=== PATIENT | male | born 1950 | race Caucasian/White ===

== ENCOUNTER 2017-06-04 16:27 | Inpatient (IN) | payer OTHER ==
[2017-06-04] MEDS ORDERED: SODIUM CHLORIDE 0.9% 1,000 ML IV ONE ×2 (18:29→20:57)
--- NOTE | 2017-06-04 18:31 | ED Physician Documentation ---
History of Present Illness - Stated complaint Stated Complaint: BACK PX - Chief complaint Chief Complaint: General - History obtained from History obtained from: Patient - History of Present Illness Timing: Other (3 weeks of productive cough, high right back pain, fatigue and dizziness. He has had chills but no measured fevers.) Review of Systems Constitutional: reports: Chills, Fatigue. denies: Fever Nose: denies: Rhinorrhea / runny nose, Congestion Cardiac: denies: Chest pain / pressure, Palpitations Respiratory: reports: Dyspnea, Cough GI: reports: Abdominal Pain. denies: Nausea, Vomiting, Diarrhea : denies: Dysuria, Frequency PD PAST MEDICAL HISTORY - Past Medical History Cardiovascular: Hypertension, High cholesterol Respiratory: Shortness of breath, Sleep apnea, CPAP use Neuro: None Endocrine/Autoimmune: Type 2 diabetes GI: Ulcers, Hemorrhoids, Cholelithiasis : Frequency, Kidney stones HEENT: None Psych: None Musculoskeletal: Osteoarthritis Derm: None - Past Surgical History General: Cholecystectomy, Appendectomy, Colonoscopy, EGD, Other Ortho: Carpal Tunnel surgery HEENT: Tonsil/Adenoidectomy - Present Medications Home Medications: Ambulatory Orders Medication Instructions Recorded Confirmed Aspirin [Aspirin EC] 81 mg PO DAILY 04/02/16 04/02/16 Gemfibrozil [Lopid] 600 mg PO BIDAC 04/02/16 04/02/16 Lisinopril 40 mg PO DAILY 04/02/16 04/02/16 Metformin HCl [Glucophage] 1,275 mg PO BID 04/02/16 04/02/16 Multivitamin [Multivitamins] 1 each PO DAILY 04/02/16 04/02/16 [place]-3/Dha/Epa/Fish Oil [Fish Oil 3,000 mg PO BID 04/02/16 04/03/16 1,000 mg Softgel] Pravastatin Sodium [Pravachol] 40 mg PO DAILY 04/02/16 04/02/16 Spironolactone [Aldactone] 50 mg PO DAILY 04/02/16 04/02/16 Terazosin HCl 20 mg PO DAILY 04/02/16 04/02/16 amLODIPine [Norvasc] 10 mg PO DAILY 04/02/16 04/02/16 Insulin Glargine [Lantus Solostar] 75 unit SUBQ BID 04/03/16 04/03/16 Insulin Regular Human [NovoLIN R] 5 unit SUBQ .QLUNCH 04/03/16 04/03/16 Insulin Regular Human [NovoLIN R] 10 - 20 unit SUBQ 04/03/16 04/03/16 .QBREAKFAST&DINNER Multivitamin [Theragran] 1 tab PO DAILY tablet 04/03/16 Furosemide 20 mg PO PRN PRN #30 tablet 04/04/16 Warfarin [Coumadin] 5 mg PO QDWARFARIN #30 tablet 04/04/16 - Allergies Allergies/Adverse Reactions: Allergies Allergy/AdvReac Type Severity Reaction Status Date / Time No Known Drug Allergies Allergy Verified 06/04/17 16:36 - Social History Does the pt smoke?: No Smoking Status: Former smoker - Immunizations Immunizations are current?: Yes PD ED PE NORMAL - Vitals Vital signs reviewed: Yes - General General: Alert and oriented X 3, No acute distress - HEENT HEENT: PERRL, EOMI - Neck Neck: Supple, no meningeal sign, No bony TTP - Cardiac Cardiac: RRR, No murmur - Respiratory Respiratory: No respiratory distress, Clear bilaterally - Abdomen Abdomen: Soft, Other (tender on the right) - Back Back: No CVA TTP, No spinal TTP - Derm Derm: Normal color, Warm and dry - Extremities Extremities: No edema, No calf tenderness / cord - Neuro Neuro: Alert and oriented X 3, Normal speech - Psych Psych: Normal mood, Normal affect Results - Vitals Vitals: Vital Signs - 24 hr 06/04/17 06/04/17 16:33 20:53 Temperature 36.4 C L Heart Rate 98 89 Respiratory 18 18 Rate Blood Pressure 132/89 H 113/79 O2 Saturation 98 97 Oxygen O2 Source Room air - EKG (time done) 1844 Rate: Rate (enter#) (92) Rhythm: Atrial fibrillation [place]: Normal QRS: Normal Ischemia: Non specific changes Computer interpretation: Agree with computer - Labs Labs: Laboratory Tests 06/04/17 06/04/17 06/04/17 16:40 18:42 18:42 WBC 10.8 RBC 4.18 L Hgb 12.1 L Hct 36.2 L MCV 86.8 MCH 29.0 MCHC 33.4 RDW 14.0 Plt Count 228 MPV 8.6 Neut # 8.1 H Lymph # 1.6 [place] # 1.0 Eos # 0.0 Baso # 0.1 Absolute Nucleated RBC 0.00 Nucleated RBC % 0.0 PT INR Sodium 131 L Potassium 4.4 Chloride 94 L Carbon Dioxide 20 L Anion Gap 17.0 H BUN 50 H Creatinine 2.3 H Estimated GFR (MDRD) 28 L Glucose 373 H Calcium 9.6 Total Bilirubin 0.5 AST 17 ALT 14 Alkaline Phosphatase 63 Troponin I Total Protein 8.6 H Albumin 3.7 Globulin 4.8 H Albumin/Globulin Ratio 0.8 L Lipase 18 L Urine Color Urine Clarity Urine pH Ur Specific [place] Urine Protein Urine Glucose (UA) Urine Ketones Urine Occult Blood Urine Nitrite Urine Bilirubin Urine Urobilinogen Ur Leukocyte Esterase Urine RBC Urine WBC Ur Squamous Epith Cells Urine Bacteria Urine Casts Ur Microscopic Review Urine Culture Comments Serum Ketones Influenza A (Rapid) Negative Influenza B (Rapid) Negative Influenza Types A,B Ag - 06/04/17 06/04/17 06/04/17 18:42 18:42 18:45 WBC RBC Hgb Hct MCV MCH MCHC RDW Plt Count MPV Neut # Lymph # [place] # Eos # Baso # Absolute Nucleated RBC Nucleated RBC % PT 108.8 H INR 10.5 H* Sodium Potassium Chloride Carbon Dioxide Anion Gap BUN Creatinine Estimated GFR (MDRD) Glucose Calcium Total Bilirubin AST ALT Alkaline Phosphatase Troponin I 0.06 Total Protein Albumin Globulin Albumin/Globulin Ratio Lipase Urine Color Urine Clarity Urine pH Ur Specific [place] Urine Protein Urine Glucose (UA) Urine Ketones Urine Occult Blood Urine Nitrite Urine Bilirubin Urine Urobilinogen Ur Leukocyte Esterase Urine RBC Urine WBC Ur Squamous Epith Cells Urine Bacteria Urine Casts Ur Microscopic Review Urine Culture Comments Serum Ketones NEGATIVE Influenza A (Rapid) Influenza B (Rapid) Influenza Types A,B Ag 06/04/17 20:57 WBC RBC Hgb Hct MCV MCH MCHC RDW Plt Count MPV Neut # Lymph # [place] # Eos # Baso # Absolute Nucleated RBC Nucleated RBC % PT INR Sodium Potassium Chloride Carbon Dioxide Anion Gap BUN Creatinine Estimated GFR (MDRD) Glucose Calcium Total Bilirubin AST ALT Alkaline Phosphatase Troponin I Total Protein Albumin Globulin Albumin/Globulin Ratio Lipase Urine Color YELLOW Urine Clarity HAZY Urine pH 6.0 Ur Specific [place] 1.025 Urine Protein 30 H Urine Glucose (UA) 250 H Urine Ketones NEGATIVE Urine Occult Blood TRACE-LYSE Urine Nitrite NEGATIVE Urine Bilirubin NEGATIVE Urine Urobilinogen 0.2 (NORMAL) Ur Leukocyte Esterase NEGATIVE Urine RBC None Seen Urine WBC 0-3 Ur Squamous Epith Cells RARE Squamous Urine Bacteria None Seen Urine Casts 3-5 Hyaline Casts Ur Microscopic Review INDICATED Urine Culture Comments NOT INDICATED Serum Ketones Influenza A (Rapid) Influenza B (Rapid) Influenza Types A,B Ag - Rads (name of study) CT A/P Radiology: EMP read contemporaneously (Perforated appendicitis) PD MEDICAL DECISION MAKING - ED course ED course: 67-year-old gentleman presents with subacute complaints of back pain and not feeling well, he has a tender abdomen and workup is notable for prerenal failure and perforated appendicitis. Spoke with Dr. Aguilar who will consult but he is not probably an acute surgical candidate and defers to medicine for admit and I spoke with Dr. Mcqueen for admission at 8:55 PM. Departure - Departure Disposition: 66 [facility] DC/Xfer Clinical Impression: Atrial fibrillation with slow ventricular response, Perforated appendicitis, Supratherapeutic INR Acute renal failure Qualifiers: Acute renal failure type: unspecified Qualified Code(s): N17.9 - Acute kidney failure, unspecified Condition: Stable Discharge Date/Time: 06/04/17 23:00
[2017-06-04 19:20] LABS: BASOPHILS # (AUTO) 0.1 10^3/uL (0.0-0.1); BASOPHILS % (AUTO) 0.6 %; EOSINOPHILS % (AUTO) 0.3 %; HGB - HEMOGLOBIN 12.1 g/dL (14.0-18.0); LYMPHOCYTES # (AUTO) 1.6 10^3/uL (1.5-3.5); LYMPHOCYTES % (AUTO) 14.8 %; MEAN CORPUSCULAR HGB CONC 33.4 g/dL (32.0-36.0); MEAN CORPUSCULAR VOLUME 86.8 fL (80.0-94.0); MEAN PLATELET VOLUME 8.6 fL (7.4-11.4); MONOCYTES % (AUTO) 9.3 %; NEUTROPHILS # (AUTO) 8.1 10^3/uL (1.5-6.6); PLT - PLATELET COUNT 228 10^3/uL (130-450); RED BLOOD COUNT 4.18 10^6/uL (4.70-6.10); WHITE BLOOD COUNT 10.8 x10^3/uL (4.8-10.8)
[2017-06-04 19:34] LABS: ALBUMIN 3.7 g/dL (3.2-5.5); ALBUMIN/GLOBULIN RATIO 0.8 (1.0-2.2); BILIRUBIN,TOTAL 0.5 mg/dL (0.2-1.0); CALCIUM 9.6 mg/dL (8.5-10.3); CREATININE 2.3 mg/dL (0.6-1.2); TOTAL PROTEIN 8.6 g/dL (6.7-8.2)
--- NOTE | 2017-06-04 19:41 | XRAY Report ---
EXAM: CHEST RADIOGRAPHY EXAM DATE: 06/04/2017 07:19 PM. CLINICAL HISTORY: Cough. Back pain. COMPARISON: 04/02/2016. TECHNIQUE: 2 views. FINDINGS: Lungs/Pleura: No focal opacities evident. No pleural effusion. No pneumothorax. Normal volumes. Mediastinum: Heart and mediastinal contours are unremarkable. Other: Mild chronic-appearing anterior wedging in the midthoracic spine. IMPRESSION: No acute abnormalities or interval change. [facility] Referring Provider Line: [phone] SITE ID: [id number]
--- NOTE | 2017-06-04 20:39 | CT Report ---
EXAM: CT ABDOMEN AND PELVIS EXAM DATE: 06/04/2017 08:12 PM. CLINICAL HISTORY: Back pain and abd TTP, renal failure. COMPARISONS: None. TECHNIQUE: Routine axial helical CT imaging was performed through the abdomen and pelvis without IV c ontrast. Reconstructions: Coronal and sagittal. In accordance with CT protocol optimization, one or more of the following dose reduction techniques w ere utilized for this exam: automated exposure control, adjustment of mA and/or KV based on patient s ize, or use of iterative reconstructive technique. FINDINGS: Lung Bases: Unremarkable. Abdominal Organs: The liver and spleen demonstrate no acute abnormality. There is fatty replacement o f pancreas. The adrenal glands and kidneys demonstrate no acute findings. There is left nephrolithias is. Gallbladder/bile ducts: The gallbladder is surgically absent. There is no significant bile duct dilat ation. Peritoneal Cavity: Stomach and small bowel demonstrate no acute abnormalities. No acute colonic abnor malities. The appendix is dilated and fluid-filled measuring up to 1.5 cm. Its cuadra are ill-defined and there are small locules of periappendiceal fluid. There is periappendiceal fat stranding. No intr aperitoneal free air. Pelvic Organs: No bladder stones or wall thickening. Noncontrast images of the visualized pelvic orga ns are unremarkable. Vasculature: No acute vascular abnormalities. Other: None. IMPRESSION: 1. CT findings consistent with perforated appendicitis with periappendiceal phlegmon. The appendix is fluid-filled measuring up to 1.5 cm in diameter. It is poorly defined. There is surrounding fat stra nding. There are small locules of adjacent fluid. No discrete fluid collection is seen that is clearl y amenable to percutaneous drainage. 2. There is left nephrolithiasis. 3. There is distal colon diverticulosis. Referring Provider Line: [phone] SITE ID: [id number]
[2017-06-04] MEDS ORDERED: PIPERACILLIN/TAZOBACTAM 3.375 GM in SODIUM CHLORIDE 0.9% MINIBAG 100 ML IV STA (20:56)
[2017-06-04 21:04] LABS: BILIRUBIN,URINE NEGATIVE (NEGATIVE); GLUCOSE, URINE (UA) 250 mg/dL (NEGATIVE); KETONES,URINE (UA) NEGATIVE (NEGATIVE); LEUKOCYTE ESTERASE, URINE NEGATIVE (NEGATIVE); NITRITE,URINE NEGATIVE (NEGATIVE); OCCULT BLOOD,URINE TRACE-LYSE (NEGATIVE); PROTEIN,URINE 30 mg/dL (NEGATIVE); UROBILINOGEN,URINE 0.2 (NORMAL) E.U./dL (NORMAL)
[2017-06-04 21:08] LABS: CLARITY,URINE HAZY (CLEAR)
[2017-06-04] MEDS ORDERED: ONDANSETRON 4 MG/2 ML VIAL IVP PRN (21:23)
[2017-06-04] MEDS ORDERED: MORPHINE 2 MG/ML CARPUJECT IVP PRN (21:23)
[2017-06-04] MEDS ORDERED: ACETAMINOPHEN 325 MG TABLET PO PRN (21:23)
[2017-06-04 21:26] LABS: RBC,URINE None Seen /HPF (0-5); SQUAMOUS EPITHELIAL CELL,UR RARE Squamous (<= Few)
[2017-06-04 21:27] LABS: BACTERIA,URINE None Seen /HPF (None Seen)
[2017-06-04 21:29] LABS: CASTS, URINE 3-5 Hyaline Casts /LPF
[2017-06-04 21:57] LABS: PT - PROTHROMBIN TIME 108.8 secs (9.9-12.6)
[2017-06-04] MEDS ORDERED: ACETAMINOPHEN 1,000 MG/100 ML 100 ML IV PRN (21:58)
[2017-06-04] MEDS ORDERED: INSULIN REGULAR HUMAN 100 UNIT/1 ML 10 ML MDV IVP SCH (21:58)
[2017-06-04] MEDS: SODIUM CHLORIDE 0.9% 1,000 ML IV SCH (22:00)
[2017-06-04] MEDS ORDERED: LABETALOL 20 MG/4 ML SYRINGE IVP PRN (22:18)
[2017-06-04 22:23] LABS: INR 10.5 (0.8-1.2)
[2017-06-05] MEDS: SODIUM CHLORIDE FLUSH 0.9% 10 ML SYRINGE IVP SCH ×4 (00:09→21:50)
[2017-06-05] MEDS: INSULIN GLARGINE 300 UNIT/3 ML PEN SUBQ SCH ×2 (00:25→21:49)
[2017-06-05] MEDS: metroNIDAZOLE 500 MG/100 ML 500 MG/100 ML BAG IV SCH ×5 (00:28→23:20)
[2017-06-05] MEDS: INSULIN REGULAR HUMAN 100 UNIT/1 ML 10 ML MDV SUBQ SCH ×4 (00:54→17:20)
[2017-06-05] MEDS: PIPERACILLIN/TAZOBACTAM 3.375 GM in SODIUM CHLORIDE 0.9% MINIBAG 100 ML IV SCH ×4 (03:59→21:50)
--- NOTE | 2017-06-05 05:27 | HISTORY & PHYSICAL EXAMINATION ---
DATE OF SERVICE: 06/04/2017 Physician: Nohemi Mcqueen MD CHIEF COMPLAINT: Right-sided upper back pain and feeling ill. SOURCE OF HISTORY: The patient was a good historian. HISTORY OF PRESENT ILLNESS: The patient is a 67-year-old, very pleasant, white male with past medical history of multiple chronic medical problems including paroxysmal atrial fibrillation on Coumadin anticoagulation, insulin-dependent diabetes, hypertension, left ventricular hypertrophy/diastolic congestive heart failure. [facility] is [facility] and his primary care physician is Dr. Solis. He was in his usual state of health up to about 2 weeks ago. At that time, he suddenly developed excruciating, right-sided back pain which he describes as upper back, but he really points to the middle of his back. The pain was 10/10 in intensity. He tolerated this pain for about a week and then he went to see his primary care provider who evaluated him, and felt that he might have had some kidney stones. The patient does not report any evaluation such as laboratory workup, urine evaluation, or any scans. He was recommended to drink a lot of fluids and was sent home from the clinic. Subsequently, the patient was drinking a lot of cranberry juice and diet soda, as he had no appetite and could not eat his meals. He was nauseous and had some shakes. He did not always take his insulin as he was not eating. Subsequently, on the evening of June 04, he felt acutely ill and he could not bear the pain anymore; therefore, he came to the ER for evaluation. Upon presentation to the ER, the patient was hemodynamically stable and afebrile. EKG showed atrial fibrillation with controlled ventricular rate. No acute ischemic sign. Laboratory showed acute renal failure, creatinine of 2.3, which increased from previous creatinine of 1.2. Blood glucose was 373. White blood cell count was normal. There was anion gap metabolic acidosis with gap of 17, carbon dioxide 20. Troponin was negative. Urinalysis was unremarkable. Influenza screen was negative. ER workup included CT scan of the abdomen and pelvis, which showed perforated appendicitis with phlegmon. The ER physician discussed the CT scan findings with the covering surgeon, Dr. Aguilar. The surgeon felt that this patient was not a candidate to go to the OR and he requested the medical service to admit the patient. He will see the patient in consultation. CODE STATUS: FULL CODE. PAST MEDICAL HISTORY 1. Hypertension. 2. Dyslipidemia. 3. Paroxysmal atrial fibrillation/slow ventricular response in the past, not on rate control medication. 4. Therapeutic Coumadin anticoagulation. 5. Congestive heart failure with normal ejection fraction, left ventricular hypertrophy/diastolic dysfunction and minor valvular abnormalities. Echocardiogram was in 2016. 6. Insulin-dependent diabetes. 7. Mild chronic kidney disease. 8. History of kidney stones. 9. Cholecystectomy. PRIMARY CARE PHYSICIAN: Dr. Solis at the [facility]. FAMILY HISTORY: Positive for muscular dystrophy in multiple family members. SOCIAL HISTORY: The patient is fully functional with instrumental activities of daily living. He still drives. He quit smoking in 1969. He only smoked for about 3 years. He drinks alcohol occasionally. Lives with his . ER workup reviewed per electronic medical record. OUTPATIENT MEDICATIONS Current updated medication list is not yet available. In addition, the patient reported that he was not able to take all his medications regularly, given his pain and anorexia. Reviewing past medication list, he was on: 1. Amlodipine. 2. Coumadin. 3. Terazosin. 4. Spironolactone. 5. Pravastatin. 6. Vitamin supplements. 7. Metformin. 8. Lisinopril. 9. Insulin. 10. Gemfibrozil. 11. Furosemide. 12. Aspirin. ALLERGIES: NO KNOWN DRUG ALLERGIES. PHYSICAL EXAMINATION VITAL SIGNS: Temperature 36.4 Celsius, heart rate between 80 and 90, blood pressure 113/79, respiratory rate 18, oxygen saturation 99% on room air. GENERAL: The patient is a well-developed, elderly male, who is not in acute distress. CARDIOVASCULAR: S1, S2, irregular. Distant heart sounds. Questionable soft systolic murmur. LYMPHATIC: No lymphedema. RESPIRATORY: Clear to auscultation without wheezes or crackles. SKIN: Mild pallor. No jaundice. ABDOMEN: Not much bowel tone. Distended abdomen. Rebound tenderness is present all over the abdomen in every area. There is some pain on the right side, both upper and lower quadrants. NEUROLOGIC: Alert, oriented, nonfocal. PSYCHIATRIC: Cooperative, pleasant to talk to. MUSCULOSKELETAL: Atraumatic. ASSESSMENT AND PLAN/ACTIVE ISSUE/DIAGNOSES 1. Sepsis/intra-abdominal sepsis secondary to perforated appendicitis with phlegmon. The patient rules in for the diagnosis of sepsis, given the intra-abdominal source and end-organ failure associated with this, which would be renal failure. His vital signs were reasonably stable. 2. Acute renal failure in the setting of sepsis. 3. Anion gap metabolic acidosis. I suspect lactic acidosis plus/minus early diabetic ketoacidosis. 4. Hyperglycemia plus/minus diabetic ketoacidosis, serum ketones are pending. My suspicion is that diabetic ketoacidosis would be less likely. This is most likely just hyperglycemia, and the anion gap is coming from lactic acid and sepsis with renal failure. 5. Atrial fibrillation with controlled ventricular rate. 6. Coumadin anticoagulation. INR pending. PLAN AND ORDERS 1. The patient is getting admitted under the medical service. Surgery consultation and evaluation were requested from the ER which is currently pending. 2. I will admit this patient as inpatient, closely monitor him on telemetry, provide supportive care with pain control. Gentle IV hydration, considering history of CHF. Notably, the patient already received over a liter IV fluid in the ER. Given renal failure and sepsis, we will hold all diuretics. If blood pressure control is needed, I will order IV labetalol. In general, a beta harvey would be beneficial to avoid cardiac ischemia and decompensation. 3. Regarding Coumadin anticoagulation, the patient might go for surgery. Therefore, I will not continue the Coumadin. Will check INR and, depending on the clinical course, INR could be left to trend down and then at some point heparin bridging can be considered for stroke protection. 4. I expect that the patient, at some point, will go for surgery; I will keep him n.p.o. overnight and await evaluation from the surgeon. Notably, this patient has intra-abdominal sepsis and he does have rebound tenderness on exam. On admission, he did have renal failure; however, it is likely that his renal function will improve with IV hydration and, at that point, he could actually be a better surgical candidate. In any case, the surgeon will need to evaluate the risk and benefit here, considering surgical versus conservative management. 5. For now, I will continue IV Zosyn and, expecting that this patient will need IV antibiotics for several weeks, requested a PICC line. Will add Flagyl as well. 6. Blood cultures were sent. 7. DVT prophylaxis with Venodyne boots. ATTESTATION: I certify in good meagan that this patient will need to be hospitalized for more than 48 hours, given his acute and severe medical problems. Subsequently, the reasonable expectation is that he will get transferred to another facility or discharged home within 96 hours. Time spent in the care of this patient was 65 minutes. TD: 06/05/2017 05:26 [email or web address]
[2017-06-05 05:43] LABS: BASOPHILS # (AUTO) 0.1 10^3/uL (0.0-0.1); BASOPHILS % (AUTO) 0.7 %; EOSINOPHILS # (AUTO) 0.1 10^3/uL (0.0-0.7); EOSINOPHILS % (AUTO) 1.3 %; HGB - HEMOGLOBIN 11.5 g/dL (14.0-18.0); LYMPHOCYTES # (AUTO) 1.5 10^3/uL (1.5-3.5); LYMPHOCYTES % (AUTO) 16.9 %; MEAN CORPUSCULAR HEMOGLOBIN 28.9 pg (27.0-31.0); MEAN CORPUSCULAR HGB CONC 33.1 g/dL (32.0-36.0); MEAN CORPUSCULAR VOLUME 87.4 fL (80.0-94.0); MEAN PLATELET VOLUME 8.7 fL (7.4-11.4); MONOCYTES % (AUTO) 10.6 %; NEUTROPHILS # (AUTO) 6.4 10^3/uL (1.5-6.6); NEUTROPHILS % (AUTO) 70.5 %; PLT - PLATELET COUNT 211 10^3/uL (130-450); RED BLOOD COUNT 3.96 10^6/uL (4.70-6.10); RED CELL DISTRIBUTION WIDTH 14.2 % (12.0-15.0)
[2017-06-05 05:51] LABS: CALCIUM 8.8 mg/dL (8.5-10.3); CREATININE 1.7 mg/dL (0.6-1.2)
[2017-06-05 06:03] LABS: INR 6.8 (0.8-1.2)
[2017-06-05] MEDS: POLYETHYLENE GLYCOL 3350 17 GM PACKET PO SCH (07:40)
[2017-06-05] MEDS: FAMOTIDINE 20 MG/50 ML 50 ML IV SCH (08:05)
--- NOTE | 2017-06-05 13:08 | PROVIDER PROGRESS NOTE ---
Subjective - Prog Note Date Prog Note Date: 06/05/17 Prog Note Time: 13:04 - Subjective Subjective: The patient says he feels much better than he did last night. Last night he was desperate with the pain. It has gotten down a little bit is now 6 out of 10 as opposed to a 10 out of 10. His main concern is eating. We have kept him n.p.o. wondering if surgery was going to come in and possibly taken to the operating room. General surgery is pretty firm in stating that he is not to be operated on. Currently his disease state can be managed expectantly. He is received FFP overnight. His INR went from 10 to 6. He has no epistaxis. No hematuria. Current Medications - Current Medications Current Medications: Active Medications Acetaminophen (Tylenol) 650 mg PO Q4HR PRN PRN Reason: Pain 1 to 4 Famotidine (Pepcid 20 Mg/50 Ml) 50 mls @ 100 mls/hr IV DAILY [facility] Last Infusion: 06/05/17 08:36 Dose: Infused Piperacillin Sod/Tazobactam (Sod 3.375 gm/ Sodium Chloride) 100 mls @ 200 mls/ hr IV Q6H [facility] Last Infusion: 06/05/17 09:13 Dose: Infused Sodium Chloride (Normal Saline 0.9%) 1,000 mls @ 80 mls/hr IV .[id number] [facility] Last Infusion: 06/05/17 07:33 Dose: 80 mls/hr Acetaminophen (Ofirmev) 100 mls @ 400 mls/hr IV Q6HR PRN PRN Reason: PAIN Metronidazole (Flagyl 500 Mg/100 Ml) 500 mg in 100 mls @ 100 mls/hr IV Q6H [facility] Last Infusion: 06/05/17 12:15 Dose: Infused Insulin Glargine (Lantus Solostar) 20 unit SUBQ QPM [facility] Last Admin: 06/05/17 00:25 Dose: 20 unit Insulin Human Regular (Novolin R) 1 - 5 unit SUBQ Q6HR QUIANA PRN Reason: Protocol Last Admin: 06/05/17 11:54 Dose: 2 unit Labetalol HCl (Trandate Syringe) 10 mg IVP Q8HR PRN PRN Reason: Blood Pressure Morphine Sulfate (Morphine (Carpuject)) 4 mg IVP Q2HR PRN PRN Reason: Pain 8 to 10 Ondansetron HCl (Zofran Inj) 4 mg IVP Q6HR PRN PRN Reason: Nausea / Vomiting Polyethylene Glycol (Miralax) 17 gm PO DAILY [facility] Last Admin: 06/05/17 07:40 Dose: Not Given Sodium Chloride (Normal Saline Flush 0.9%) 10 ml IVP PRN PRN PRN Reason: NEEDED PER PROVIDER ORDERS Sodium Chloride (Normal Saline Flush 0.9%) 10 ml IVP Q8HR [facility] Last Admin: 06/05/17 11:36 Dose: Not Given Aspirin [Aspirin EC] 81 mg PO DAILY 04/02/16 Gemfibrozil [Lopid] 600 mg PO BIDAC 04/02/16 Lisinopril 40 mg PO DAILY 04/02/16 Metformin HCl [Glucophage] 1,275 mg PO BID 04/02/16 [place]-3/Dha/Epa/Fish Oil [Fish Oil 1,000 mg Softgel] 3,000 mg PO BID 04/02/16 Pravastatin Sodium [Pravachol] 40 mg PO DAILY 04/02/16 Spironolactone [Aldactone] 50 mg PO DAILY 04/02/16 Terazosin HCl 20 mg PO DAILY 04/02/16 amLODIPine [Norvasc] 10 mg PO DAILY 04/02/16 Insulin Glargine [Lantus Solostar] 80 unit SUBQ BID 04/03/16 Insulin Regular Human [NovoLIN R] 30 unit SUBQ .QBREAKFAST&DINNER 04/03/16 Furosemide 20 mg PO DAILY 06/05/17 Objective - Vital Signs/Intake & Output Reviewed Vital Signs: Yes Vital Signs: Vital Signs x48h Temp Pulse Resp BP Pulse Ox 06/05/17 11:11 36.5 C 75 20 134/74 H 98 06/05/17 07:52 36.9 C 84 18 132/77 H 97 06/05/17 05:10 37.0 C 84 18 133/78 H 96 Intake & Output: Intake & Output 06/02/17 06/03/17 06/04/17 06/05/17 23:59 23:59 23:59 23:59 Intake Total 370 1219.000 Output Total 1300 Balance 370 -81.000 - Objective General Appearance: positive: No acute distress, Alert, Other (he was asleep and wakened easily) Eyes Bilateral: positive: PERRL ENT: positive: Dry mucous membranes Neck: positive: No JVD. negative: Stiff neck, Carotid bruit Respiratory: positive: Chest non-tender. negative: Wheezes, Rales, Rhonchi Cardiovascular: positive: Regular rate & rhythm, Systolic murmur. negative: Gallop/S4, Friction rub Abdomen: positive: No organomegaly, Tenderness, Guarding, Rebound, Abnml bowel sounds (hypoactive, I only heard 1. does have flatus) Skin: positive: Warm, Dry Extremities: positive: Full ROM, No pedal edema Neurologic/Psychiatric: positive: Oriented x3, CN's nml (2-12), Motor nml - Lab Results Fish Bones: 06/05/17 05:05 06/05/17 05:05 Other Labs: Lab Results x24hrs 06/05/17 06/05/17 06/05/17 Range/Units 11:37 05:45 05:05 WBC (4.8-10.8) x10^3/uL RBC (4.70-6.10) 10^6/uL Hgb (14.0-18.0) g/dL Hct (42.0-52.0) % MCV (80.0-94.0) fL MCH (27.0-31.0) pg MCHC (32.0-36.0) g/dL RDW (12.0-15.0) % Plt Count (130-450) 10^3/uL MPV (7.4-11.4) fL Neut # (1.5-6.6) 10^3/uL Lymph # (1.5-3.5) 10^3/uL [place] # (0.0-1.0) 10^3/uL Eos # (0.0-0.7) 10^3/uL Baso # (0.0-0.1) 10^3/uL Absolute Nucleated RBC x10^3/uL Nucleated RBC % /100WBC PT (9.9-12.6) secs INR (0.8-1.2) Sodium 134 L (135-145) mmol/L Potassium 4.0 (3.5-5.0) mmol/L Chloride 104 (101-111) mmol/L Carbon Dioxide 21 (21-32) mmol/L Anion Gap 9.0 (6-13) BUN 44 H (6-20) mg/dL Creatinine 1.7 H (0.6-1.2) mg/dL Estimated GFR (MDRD) 40 L (>89) Glucose 251 H (70-100) mg/dL POC Whole Bld Glucose 192 H 250 H (70 - 100) mg/dL Lactic Acid (0.5-2.2) mmol/L Calcium 8.8 (8.5-10.3) mg/dL Blood Type 06/05/17 06/05/17 06/04/17 Range/Units 05:05 05:05 23:29 WBC 9.0 (4.8-10.8) x10^3/uL RBC 3.96 L (4.70-6.10) 10^6/uL Hgb 11.5 L (14.0-18.0) g/dL Hct 34.6 L (42.0-52.0) % MCV 87.4 (80.0-94.0) fL MCH 28.9 (27.0-31.0) pg MCHC 33.1 (32.0-36.0) g/dL RDW 14.2 (12.0-15.0) % Plt Count 211 (130-450) 10^3/uL MPV 8.7 (7.4-11.4) fL Neut # 6.4 (1.5-6.6) 10^3/uL Lymph # 1.5 (1.5-3.5) 10^3/uL [place] # 1.0 (0.0-1.0) 10^3/uL Eos # 0.1 (0.0-0.7) 10^3/uL Baso # 0.1 (0.0-0.1) 10^3/uL Absolute Nucleated RBC 0.00 x10^3/uL Nucleated RBC % 0.0 /100WBC PT 71.0 H (9.9-12.6) secs INR 6.8 H* (0.8-1.2) Sodium (135-145) mmol/L Potassium (3.5-5.0) mmol/L Chloride (101-111) mmol/L Carbon Dioxide (21-32) mmol/L Anion Gap (6-13) BUN (6-20) mg/dL Creatinine (0.6-1.2) mg/dL Estimated GFR (MDRD) (>89) Glucose (70-100) mg/dL POC Whole Bld Glucose 259 H (70 - 100) mg/dL Lactic Acid (0.5-2.2) mmol/L Calcium (8.5-10.3) mg/dL Blood Type 06/04/17 06/04/17 Range/Units 22:53 22:20 WBC (4.8-10.8) x10^3/uL RBC (4.70-6.10) 10^6/uL Hgb (14.0-18.0) g/dL Hct (42.0-52.0) % MCV (80.0-94.0) fL MCH (27.0-31.0) pg MCHC (32.0-36.0) g/dL RDW (12.0-15.0) % Plt Count (130-450) 10^3/uL MPV (7.4-11.4) fL Neut # (1.5-6.6) 10^3/uL Lymph # (1.5-3.5) 10^3/uL [place] # (0.0-1.0) 10^3/uL Eos # (0.0-0.7) 10^3/uL Baso # (0.0-0.1) 10^3/uL Absolute Nucleated RBC x10^3/uL Nucleated RBC % /100WBC PT (9.9-12.6) secs INR (0.8-1.2) Sodium (135-145) mmol/L Potassium (3.5-5.0) mmol/L Chloride (101-111) mmol/L Carbon Dioxide (21-32) mmol/L Anion Gap (6-13) BUN (6-20) mg/dL Creatinine (0.6-1.2) mg/dL Estimated GFR (MDRD) (>89) Glucose (70-100) mg/dL POC Whole Bld Glucose (70 - 100) mg/dL Lactic Acid 1.3 (0.5-2.2) mmol/L Calcium (8.5-10.3) mg/dL Blood Type O POSITIVE Assessment/Plan - Problem List (1) Perforated appendicitis Impression: with phlegmon. no abcess. No fever. no WBC. Abd is bonsai tender. Too soon for blood culture results. Plan: Gen Surgery formal consult. No OR planned Feed him Continue Abx: flagyl and zosyn Day #2 Plan on 10-14 days of abx Repeat CT in 3 days PICC line for prolonged abx care (2) Sepsis Impression: he meets the new 2016 criteria of infection with >2 points on the sepsis organ related failure (SOFA) with creat 2.3. Platelets, Bili, BP, Oxygen, GCS are all ok. That is resolving with response of creat this am. Qualifiers: Sepsis type: sepsis due to unspecified organism Qualified Code(s): A41.9 - Sepsis, unspecified organism (3) Acute renal failure Impression: baseline creatinine is 1.1. With infection and lack of po intake, his creat trino to 2.3 coming down w IV abx and fluids. continue to monitor. Qualifiers: Acute renal failure type: unspecified Qualified Code(s): N17.9 - Acute kidney failure, unspecified (4) Supratherapeutic INR Impression: he has come down from 10 to 6. no active bleeding. continue to monitor and treat only if bleeding occurs or he has to go to OR (5) Atrial fibrillation Impression: rate is self controlled. other than anticoagulation, no other meds will start lovenox once his INR drifts below 2. 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 last A1c was 2015 8.3% recheck here. (7) Diastolic CHF with preserved left ventricular function, NYHA class 2 Impression: no sob, no edema. lungs clear. monitor for fluid overload.
--- NOTE | 2017-06-05 13:44 | CONSULTATION NOTE ---
Referring Provider Name of Referring Provider:: Sal/John Consult Date: 06/04/17 Chief Complaint - Chief Complaint Chief Complaint: Phlegmon of appendix History of Present Illness - Admitted From Admitted From:: Emergency Department [facility] - History Obtained From Records Reviewed: Yes History obtained from: Patient and chart Exam Limitations: None - History of Present Illness HPI Comment/Other: Called by Dr. Huang to evaluate this pleasant 67 year old male with a 2 week history of abdominal pain and right back pain associated with appendiceal phlegmon seen on CT scan. Patient is hungry and there are no indications of active infection. Patient was unable to take po food for the past 2 weeks and only taking fluids. Pain is/was described as severe and it resulted in patient coming to ED. History - Past Medical History Cardiovascular: reports: Hypertension, High cholesterol, Atrial fibrillation Respiratory: reports: Shortness of breath, Sleep apnea, CPAP use Neuro: reports: None Endocrine/Autoimmune: reports: Type 2 diabetes GI: reports: Ulcers, Hemorrhoids, Cholelithiasis : reports: Nocturia, Frequency, Kidney stones HEENT: reports: None Psych: reports: None Musculoskeletal: reports: None Derm: reports: None MRSA Hx?: No - Past Surgical History General: reports: Cholecystectomy, Colonoscopy (Performed over 10 years ago per patient.), EGD, Other Ortho: reports: Carpal Tunnel surgery HEENT: reports: Tonsil/Adenoidectomy Meds/Allgy - Home Medications Home Medications: Ambulatory Orders Medication Instructions Recorded Confirmed Aspirin [Aspirin EC] 81 mg PO DAILY 04/02/16 06/05/17 Gemfibrozil [Lopid] 600 mg PO BIDAC 04/02/16 06/05/17 Lisinopril 40 mg PO DAILY 04/02/16 06/05/17 Metformin HCl [Glucophage] 1,275 mg PO BID 04/02/16 06/05/17 [place]-3/Dha/Epa/Fish Oil [Fish Oil 3,000 mg PO BID 04/02/16 06/05/17 1,000 mg Softgel] Pravastatin Sodium [Pravachol] 40 mg PO DAILY 04/02/16 06/05/17 Spironolactone [Aldactone] 50 mg PO DAILY 04/02/16 06/05/17 Terazosin HCl 20 mg PO DAILY 04/02/16 06/05/17 amLODIPine [Norvasc] 10 mg PO DAILY 04/02/16 06/05/17 Insulin Glargine [Lantus Solostar] 80 unit SUBQ BID 04/03/16 06/05/17 Insulin Regular Human [NovoLIN R] 30 unit SUBQ .QBREAKFAST&DINNER 04/03/1606/05 Multivitamin [Theragran] 1 tab PO DAILY tablet 04/03/16 06/05/17 Warfarin [Coumadin] 5 mg PO QDWARFARIN #30 tablet 04/04/16 06/05/17 Furosemide 20 mg PO DAILY 06/05/17 06/05/17 - Allergies Allergies/Adverse Reactions: Allergies Allergy/AdvReac Type Severity Reaction Status Date / Time No Known Drug Allergies Allergy Verified 06/04/17 16:36 Review of Systems - Constitutional Constitutional: denies: Fever, Chills, Malaise, Weakness, Poor appetite, Diaphoresis, Night sweats - Ears, Nose & Throat Ears, Nose & Throat: denies: Ear pain - Cardiovascular Cariovascular: denies: Palpitations, Chest pain - Respiratory Respiratory: denies: Cough, Sputum production, Wheezing, Hemoptysis - Gastrointestinal Gastrointestinal: reports: Abdominal pain (Markedly improved but worse on motion or palpation.). denies: Nausea, Vomiting - Genitourinary Genitourinary: denies: Incontinence - Musculoskeletal Musculoskeletal: reports: Back pain. denies: Muscle pain - Neurological Neurological: denies: General weakness, Focal weakness Exam - Vital Signs Reviewed Vital Signs: Yes Vital Signs: Vital Signs x48h Temp Pulse Resp BP Pulse Ox 06/05/17 11:11 36.5 C 75 20 134/74 H 98 06/05/17 07:52 36.9 C 84 18 132/77 H 97 - Physical Exam General Appearance: positive: No acute distress Eyes Bilateral: positive: No lid inflammation, Conjunctivae nml, No scleral icterus Neck: positive: Trachea midline Respiratory: positive: Chest non-tender, No respiratory distress, Breath sounds nml Cardiovascular: positive: Regular rate & rhythm Abdomen: positive: Nml bowel sounds, Tenderness (In right lower quadrant and mass can be palpated. Very tender but not peritoneal in nature.) Skin: positive: Color nml Extremities: positive: Nml appearance Neurologic/Psychiatric: positive: Oriented x3 Conclusion/Plan - Diagnosis Diagnosis: Appendiceal phlegmon. - Plan Plan: Hospital day 1 appendiceal phlegmon The patient should absolutely NOT be operated on now. The 2 reasons that were explained clearly to Dr. Huang were that phlegmons should not be operated on and that his elevated INR and PT would preclude an operation. The plan as explained again to Dr. Huang was that the patient was going to be admitted to the medical service for IV antibiotics and treatment of his co-morbidities including his elevated INR and PT. In 3 days or more (with the patient on IV antibiotics) a repeat CT scan would be done to determine whether the phlegmon had organized into an abscess that could be drained percutaneously or whether the phlegmon was resolving. If the phelgmon was resolving then the patient could be discharged home with oral antibiotics and in 6 weeks he would have a colonoscopy to determine whether this phlegmon was due to the appendix or the colon. Following the colonoscopy (different day) he would have a laparoscopic appendectomy (if appendiceal in origin) or a laparoscopic right hemicolectomy ( if colonic in origin). I will continue to follow peripherally as my services are unlikely to be required. - Lab Results Fish Bones: 06/05/17 05:05 06/05/17 05:05
[2017-06-05 14:47] LABS: HB2 TOTAL 12.5 g/dL; HEMOGLOBIN A1C 0.87 g/dL; HEMOGLOBIN A1C % 8.5 % (4.6-6.2)
[2017-06-05] MEDS: SODIUM CHLORIDE 0.9% 1,000 ML IV SCH (14:54)
[2017-06-06] MEDS: PIPERACILLIN/TAZOBACTAM 3.375 GM in SODIUM CHLORIDE 0.9% MINIBAG 100 ML IV SCH ×4 (03:03→21:56)
[2017-06-06 03:32] LABS: HB2 TOTAL 11.8 g/dL; HEMOGLOBIN A1C 0.85 g/dL; HEMOGLOBIN A1C % 8.7 % (4.6-6.2)
[2017-06-06] MEDS: metroNIDAZOLE 500 MG/100 ML 500 MG/100 ML BAG IV SCH ×4 (05:07→23:07)
[2017-06-06] MEDS: SODIUM CHLORIDE FLUSH 0.9% 10 ML SYRINGE IVP SCH ×3 (06:25→17:32)
[2017-06-06] MEDS: SODIUM CHLORIDE 0.9% 1,000 ML IV SCH ×2 (07:45)
[2017-06-06] MEDS: INSULIN ASPART 300 UNIT/3 ML PEN SUBQ SCH ×4 (08:12→21:55)
[2017-06-06] MEDS: INSULIN GLARGINE 300 UNIT/3 ML PEN SUBQ SCH ×2 (08:12→21:55)
[2017-06-06] MEDS: FAMOTIDINE 20 MG/50 ML 50 ML IV SCH (08:14)
[2017-06-06] MEDS: POLYETHYLENE GLYCOL 3350 17 GM PACKET PO SCH (08:17)
--- NOTE | 2017-06-06 14:57 | MISCELLANEOUS PROVIDER NOTE ---
Miscellaneous Provider Note - - Note: The admitting diagnosis is incorrect. The patient does not have sepsis. He has not and does not have a fever or elevated white count. My exam today confirms a mass in the right lower quadrant. What the patient has is an appendiceal phlegmon. He is tolerating a general diet, passing gas and stool. He is also receiving IV antibiotics and should have a repeat CT scan of his abdomen and pelvis on Wednesday to look for change in the phlegmon. There are no current surgical issues. Will continue to follow with the surgical plan of colonoscopy in 6 weeks if he continues to improve followed by consideration of an interval appendectomy.
--- NOTE | 2017-06-06 17:43 | PROVIDER PROGRESS NOTE ---
Subjective - Prog Note Date Prog Note Date: 06/06/17 Prog Note Time: 17:39 - Subjective Pt reports feeling: Improved (Patient is eating, says his pain is very minimal at this time.) Current Medications - Current Medications Current Medications: Tylenol, Pepcid, NovoLog, Lantus, Flagyl, morphine, Zofran,Zosyn, MiraLAX, normal saline Objective - Vital Signs/Intake & Output Reviewed Vital Signs: Yes Vital Signs: Vital Signs x48h Temp Pulse Resp BP Pulse Ox 06/06/17 16:03 36.6 C 66 18 146/77 H 98 06/06/17 12:07 36.6 C 68 18 125/77 98 Intake & Output: Intake & Output 06/03/17 06/04/17 06/05/17 06/06/17 23:59 23:59 23:59 23:59 Intake Total 370 3611.667 3026.000 Output Total 1600 Balance 370 2011.667 3026.000 - Objective General Appearance: positive: No acute distress, Alert Eyes Bilateral: positive: Normal inspection, PERRL, EOMI, No lid inflammation, Conjunctivae nml ENT: positive: ENT inspection nml, Pharynx nml, No signs of dehydration Neck: positive: Nml inspection, Thyroid nml, No JVD, Trachea midline. negative : Thyromegaly Respiratory: positive: Chest non-tender, No respiratory distress, Breath sounds nml. negative: Wheezes, Rales, Rhonchi Cardiovascular: positive: No murmur, No gallop, Irregularly irregular, Bradycardia Abdomen: positive: No organomegaly, Nml bowel sounds, No distention, Tenderness. negative: Guarding, Rebound Back: positive: Nml inspection. negative: CVA tenderness (R), CVA tenderness (L ) Skin: positive: Color nml, No rash, Warm, Dry. negative: Cyanosis Extremities: positive: Non-tender, Full ROM, Nml appearance, No pedal edema Neurologic/Psychiatric: positive: Oriented x3, CN's nml (2-12), Motor nml, Sensation nml, Mood/affect nml - Lab Results Fish Bones: 06/05/17 05:05 06/05/17 05:05 Other Labs: Lab Results x24hrs 06/06/17 06/06/17 06/06/17 Range/Units 16:46 11:21 07:41 POC Whole Bld Glucose 198 H 246 H 171 H (70 - 100) mg/dL Glycated Hemoglobin (4.6-6.2) % Estim Average Glucose (70-100) 06/05/17 06/05/17 Range/Units 23:55 20:32 POC Whole Bld Glucose 194 H (70 - 100) mg/dL Glycated Hemoglobin 8.7 H (4.6-6.2) % Estim Average Glucose 203 H (70-100) - Diagnostic Imaging Diagnostic Imaging Results: positive: Final report reviewed Diagnostic Imaging Comments: EXAM: CT ABDOMEN AND PELVIS EXAM DATE: 06/04/2017 08:12 PM. CLINICAL HISTORY: Back pain and abd TTP, renal failure. COMPARISONS: None. TECHNIQUE: Routine axial helical CT imaging was performed through the abdomen and pelvis without IV contrast. Reconstructions: Coronal and sagittal. In accordance with CT protocol optimization, one or more of the following dose reduction techniques were utilized for this exam: automated exposure control, adjustment of mA and/or KV based on patient size, or use of iterative reconstructive technique. FINDINGS: Lung Bases: Unremarkable. Abdominal Organs: The liver and spleen demonstrate no acute abnormality. There is fatty replacement of pancreas. The adrenal glands and kidneys demonstrate no acute findings. There is left nephrolithiasis. Gallbladder/bile ducts: The gallbladder is surgically absent. There is no significant bile duct dilatation. Peritoneal Cavity: Stomach and small bowel demonstrate no acute abnormalities. No acute colonic abnormalities. The appendix is dilated and fluid-filled measuring up to 1.5 cm. Its cuadra are ill- defined and there are small locules of periappendiceal fluid. There is periappendiceal fat stranding. No intraperitoneal free air. Pelvic Organs: No bladder stones or wall thickening. Noncontrast images of the visualized pelvic organs are unremarkable. Vasculature: No acute vascular abnormalities. Other: None. IMPRESSION: 1. CT findings consistent with perforated appendicitis with periappendiceal phlegmon. The appendix is fluid-filled measuring up to 1.5 cm in diameter. It is poorly defined. There is surrounding fat stranding. There are small locules of adjacent fluid. No discrete fluid collection is seen that is clearly amenable to percutaneous drainage. 2. There is left nephrolithiasis. 3. There is distal colon diverticulosis. EXAM: CHEST RADIOGRAPHY EXAM DATE: 06/04/2017 07:19 PM. CLINICAL HISTORY: Cough. Back pain. COMPARISON: 04/02/2016. TECHNIQUE: 2 views. FINDINGS: Lungs/Pleura: No focal opacities evident. No pleural effusion. No pneumothorax. Normal volumes. Mediastinum: Heart and mediastinal contours are unremarkable. Other: Mild chronic-appearing anterior wedging in the midthoracic spine. IMPRESSION: No acute abnormalities or interval change. Assessment/Plan - Problem List (1) Phlegmon Impression: Appendiceal. The current plan is to repeat the CAT scan of the abdomen on Wednesday and have the patient followed up as an outpatient. Will continue on the IV antibiotics until that time. The patient is eating and moving his bowels. (2) Acute renal failure Impression: Creatinine was trending down yesterday from 2.3-1.7. Baseline creatinine in March 2016 was 1.2. We will repeat creatinine levels tomorrow. Qualifiers: Acute renal failure type: unspecified Qualified Code(s): N17.9 - Acute kidney failure, unspecified (3) Atrial fibrillation with slow ventricular response Impression: The rate reportedly dropped down into the 40s while the patient was sleeping but otherwise the patient is asymptomatic. We will continue to monitor. (4) Sepsis Impression: Resolved now that the patient's creatinine is returning to baseline. Qualifiers: Sepsis type: sepsis due to unspecified organism Qualified Code(s): A41.9 - Sepsis, unspecified organism (5) Supratherapeutic INR Impression: The patient received fresh frozen plasma in the INR was 6.82 days ago. Will repeat in the morning. (7) Diastolic CHF Impression: Patient's BNP on June 04 was 535. Will repeat in the morning. There are no signs of fluid overload at this time.
[2017-06-06] MEDS: METOPROLOL TARTRATE 25 MG TABLET PO SCH (23:11)
[2017-06-07] MEDS: SODIUM CHLORIDE 0.9% 1,000 ML IV SCH ×2 (02:59→20:27)
[2017-06-07] MEDS: PIPERACILLIN/TAZOBACTAM 3.375 GM in SODIUM CHLORIDE 0.9% MINIBAG 100 ML IV SCH ×4 (03:00→20:20)
[2017-06-07 05:17] LABS: HGB - HEMOGLOBIN 10.6 g/dL (14.0-18.0); MEAN CORPUSCULAR HEMOGLOBIN 29.8 pg (27.0-31.0); MEAN CORPUSCULAR HGB CONC 34.1 g/dL (32.0-36.0); MEAN CORPUSCULAR VOLUME 87.3 fL (80.0-94.0); MEAN PLATELET VOLUME 8.3 fL (7.4-11.4); RED BLOOD COUNT 3.56 10^6/uL (4.70-6.10); RED CELL DISTRIBUTION WIDTH 13.9 % (12.0-15.0); WHITE BLOOD COUNT 8.1 x10^3/uL (4.8-10.8)
[2017-06-07 05:20] LABS: INR 2.4 (0.8-1.2); PT - PROTHROMBIN TIME 26.6 secs (9.9-12.6)
[2017-06-07] MEDS: metroNIDAZOLE 500 MG/100 ML 500 MG/100 ML BAG IV SCH ×3 (05:20→16:24)
[2017-06-07] MEDS: SODIUM CHLORIDE FLUSH 0.9% 10 ML SYRINGE IVP SCH ×3 (05:21→20:27)
[2017-06-07 05:25] LABS: CALCIUM 8.4 mg/dL (8.5-10.3); CREATININE 1.3 mg/dL (0.6-1.2)
[2017-06-07] MEDS: FAMOTIDINE 20 MG/50 ML 50 ML IV SCH (09:30)
[2017-06-07] MEDS: INSULIN ASPART 300 UNIT/3 ML PEN SUBQ SCH ×4 (09:32→20:21)
[2017-06-07] MEDS: INSULIN GLARGINE 300 UNIT/3 ML PEN SUBQ SCH ×2 (09:33→20:21)
[2017-06-07] MEDS: POLYETHYLENE GLYCOL 3350 17 GM PACKET PO SCH (09:50)
[2017-06-07] MEDS: METOPROLOL TARTRATE 25 MG TABLET PO SCH ×2 (09:53→20:20)
--- NOTE | 2017-06-07 11:52 | PROVIDER PROGRESS NOTE ---
Subjective - Prog Note Date Prog Note Date: 06/07/17 Prog Note Time: 11:50 - Subjective Pt reports feeling: Improved Subjective: he had nonsustained Vtach last night. Put on metoprolol by escrow agent but he already has pulse in 60's to 70's denies cp, sob and abd doesn't really hurt anymore. tolerating diet. no fever, no chills. Current Medications - Current Medications Current Medications: Active Medications Acetaminophen (Tylenol) 650 mg PO Q4HR PRN PRN Reason: Pain 1 to 4 Famotidine (Pepcid 20 Mg/50 Ml) 50 mls @ 100 mls/hr IV DAILY [facility] Last Infusion: 06/07/17 11:23 Dose: Infused Piperacillin Sod/Tazobactam (Sod 3.375 gm/ Sodium Chloride) 100 mls @ 200 mls/ hr IV Q6H [facility] Last Infusion: 06/07/17 11:23 Dose: Infused Sodium Chloride (Normal Saline 0.9%) 1,000 mls @ 80 mls/hr IV .[id number] [facility] Last Admin: 06/07/17 02:59 Dose: 80 mls/hr Acetaminophen (Ofirmev) 100 mls @ 400 mls/hr IV Q6HR PRN PRN Reason: PAIN Metronidazole (Flagyl 500 Mg/100 Ml) 500 mg in 100 mls @ 100 mls/hr IV Q6H [facility] Last Admin: 06/07/17 11:27 Dose: 100 mls/hr Insulin Aspart (Novolog) 1 - 5 unit SUBQ 0800,1200,1700,2100 [facility] PRN Reason: Protocol Last Admin: 06/07/17 09:32 Dose: 1 unit Insulin Glargine (Lantus Solostar) 20 unit SUBQ BID [facility] Last Admin: 06/07/17 09:33 Dose: 20 unit Metoprolol Tartrate (Lopressor) 12.5 mg PO BID [facility] Last Admin: 06/07/17 09:53 Dose: 12.5 mg Morphine Sulfate (Morphine (Carpuject)) 4 mg IVP Q2HR PRN PRN Reason: Pain 8 to 10 Ondansetron HCl (Zofran Inj) 4 mg IVP Q6HR PRN PRN Reason: Nausea / Vomiting Polyethylene Glycol (Miralax) 17 gm PO DAILY [facility] Last Admin: 06/07/17 09:50 Dose: Not Given Sodium Chloride (Normal Saline Flush 0.9%) 10 ml IVP PRN PRN PRN Reason: NEEDED PER PROVIDER ORDERS Sodium Chloride (Normal Saline Flush 0.9%) 10 ml IVP Q8HR [facility] Last Admin: 06/07/17 05:21 Dose: 10 ml Aspirin [Aspirin EC] 81 mg PO DAILY 04/02/16 Gemfibrozil [Lopid] 600 mg PO BIDAC 04/02/16 Lisinopril 40 mg PO DAILY 04/02/16 Metformin HCl [Glucophage] 1,275 mg PO BID 04/02/16 [place]-3/Dha/Epa/Fish Oil [Fish Oil 1,000 mg Softgel] 3,000 mg PO BID 04/02/16 Pravastatin Sodium [Pravachol] 40 mg PO DAILY 04/02/16 Spironolactone [Aldactone] 50 mg PO DAILY 04/02/16 Terazosin HCl 20 mg PO DAILY 04/02/16 amLODIPine [Norvasc] 10 mg PO DAILY 04/02/16 Insulin Glargine [Lantus Solostar] 80 unit SUBQ BID 04/03/16 Insulin Regular Human [NovoLIN R] 30 unit SUBQ .QBREAKFAST&DINNER 04/03/16 Furosemide 20 mg PO DAILY 06/05/17 Objective - Vital Signs/Intake & Output Reviewed Vital Signs: Yes Vital Signs: Vital Signs x48h Temp Pulse Resp BP BP Pulse Ox 06/07/17 09:53 141/77 H 06/07/17 08:14 36.5 C 44 L 17 149/91 H 95 06/07/17 05:00 36.7 C 63 16 149/90 H 99 Intake & Output: Intake & Output 06/04/17 06/05/17 06/06/17 06/07/17 23:59 23:59 23:59 23:59 Intake Total 370 3611.667 3934.000 975 Output Total 1600 Balance 370 2011.667 3934.000 975 - Objective General Appearance: positive: No acute distress, Alert Eyes Bilateral: positive: PERRL ENT: positive: Pharynx nml Neck: positive: No JVD. negative: Lymphadenopathy (R), Lymphadenopathy (L), Carotid bruit Respiratory: positive: Chest non-tender. negative: Wheezes, Rales, Rhonchi Cardiovascular: positive: Regular rate & rhythm. negative: Gallop/S4, Friction rub Abdomen: positive: Non-tender, No organomegaly, Nml bowel sounds, No distention , Other (the peritoneal findings are gone from admit and the next day) Skin: positive: Warm, Dry Extremities: positive: Non-tender, Full ROM Neurologic/Psychiatric: positive: Oriented x3, CN's nml (2-12), Motor nml - Lab Results Fish Bones: 06/07/17 05:02 06/07/17 05:02 Other Labs: Lab Results x24hrs 06/07/17 06/07/17 06/07/17 Range/Units 07:49 05:02 05:02 WBC (4.8-10.8) x10^3/uL RBC (4.70-6.10) 10^6/uL Hgb (14.0-18.0) g/dL Hct (42.0-52.0) % MCV (80.0-94.0) fL MCH (27.0-31.0) pg MCHC (32.0-36.0) g/dL RDW (12.0-15.0) % Plt Count (130-450) 10^3/uL MPV (7.4-11.4) fL PT (9.9-12.6) secs INR (0.8-1.2) Sodium 133 L (135-145) mmol/L Potassium 3.5 (3.5-5.0) mmol/L Chloride 106 (101-111) mmol/L Carbon Dioxide 19 L (21-32) mmol/L Anion Gap 8.0 (6-13) BUN 27 H (6-20) mg/dL Creatinine 1.3 H (0.6-1.2) mg/dL Estimated GFR (MDRD) 55 L (>89) Glucose 174 H (70-100) mg/dL POC Whole Bld Glucose 155 H (70 - 100) mg/dL Calcium 8.4 L (8.5-10.3) mg/dL B-Natriuretic Peptide 656 H (5-100) pg/mL 06/07/17 06/07/17 06/06/17 Range/Units 05:02 05:02 20:32 WBC 8.1 (4.8-10.8) x10^3/uL RBC 3.56 L (4.70-6.10) 10^6/uL Hgb 10.6 L (14.0-18.0) g/dL Hct 31.1 L (42.0-52.0) % MCV 87.3 (80.0-94.0) fL MCH 29.8 (27.0-31.0) pg MCHC 34.1 (32.0-36.0) g/dL RDW 13.9 (12.0-15.0) % Plt Count 223 (130-450) 10^3/uL MPV 8.3 (7.4-11.4) fL PT 26.6 H (9.9-12.6) secs INR 2.4 H (0.8-1.2) Sodium (135-145) mmol/L Potassium (3.5-5.0) mmol/L Chloride (101-111) mmol/L Carbon Dioxide (21-32) mmol/L Anion Gap (6-13) BUN (6-20) mg/dL Creatinine (0.6-1.2) mg/dL Estimated GFR (MDRD) (>89) Glucose (70-100) mg/dL POC Whole Bld Glucose 234 H (70 - 100) mg/dL Calcium (8.5-10.3) mg/dL B-Natriuretic Peptide (5-100) pg/mL 06/06/17 Range/Units 16:46 WBC (4.8-10.8) x10^3/uL RBC (4.70-6.10) 10^6/uL Hgb (14.0-18.0) g/dL Hct (42.0-52.0) % MCV (80.0-94.0) fL MCH (27.0-31.0) pg MCHC (32.0-36.0) g/dL RDW (12.0-15.0) % Plt Count (130-450) 10^3/uL MPV (7.4-11.4) fL PT (9.9-12.6) secs INR (0.8-1.2) Sodium (135-145) mmol/L Potassium (3.5-5.0) mmol/L Chloride (101-111) mmol/L Carbon Dioxide (21-32) mmol/L Anion Gap (6-13) BUN (6-20) mg/dL Creatinine (0.6-1.2) mg/dL Estimated GFR (MDRD) (>89) Glucose (70-100) mg/dL POC Whole Bld Glucose 198 H (70 - 100) mg/dL Calcium (8.5-10.3) mg/dL B-Natriuretic Peptide (5-100) pg/mL Assessment/Plan - Problem List (1) Perforated appendicitis Impression: with phlegmon. no abcess. No fever. no WBC. Abd is flotation tender helper. Too soon for blood culture results. Plan: Gen Surgery formal consult. No OR planned Feed him Continue Abx: flagyl and zosyn Day #4 Plan on 10-14 days of abx Repeat CT today PICC line for prolonged abx care (2) Sepsis Impression: he meets the new 2016 criteria of infection with >2 points on the sepsis organ related failure (SOFA) with creat 2.3. Platelets, Bili, BP, Oxygen, GCS are all ok. That is resolving with response of creat this am. Qualifiers: Sepsis type: sepsis due to unspecified organism Qualified Code(s): A41.9 - Sepsis, unspecified organism (3) Acute renal failure Impression: baseline creatinine is 1.1. With infection and lack of po intake, his creat trino to 2.3 coming down w IV abx and fluids. continue to monitor. Today he is 1.3 Qualifiers: Acute renal failure type: unspecified Qualified Code(s): N17.9 - Acute kidney failure, unspecified (4) Supratherapeutic INR Impression: he has come down from 10 to 6. no active bleeding. continue to monitor and treat only if bleeding occurs or he has to go to OR (5) Atrial fibrillation Impression: rate is self controlled. other than anticoagulation, no other meds. He is 2.4 and anesthesia will wait for PICC will start lovenox once his INR drifts below 2. 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 last A1c was 2015 8.3% and with this admit 8.3 to 8.5% Glucose is 171, 194, 246, 198, 234 yesterday Glucose 155 this am (7) Diastolic CHF with preserved left ventricular function, NYHA class 2 Impression: no sob, no edema. lungs clear. monitor for fluid overload. (5) Atrial fibrillation Qualifiers: Qualified Code(s): I48.91 - Unspecified atrial fibrillation
[2017-06-07] MEDS ORDERED: IOPAMIDOL-300 50 ML VIAL ONE (12:08)
[2017-06-07] MEDS ORDERED: IOPAMIDOL-300 100 ML VIAL ONE (12:08)
--- NOTE | 2017-06-07 13:58 | CT Report ---
CT OF THE ABDOMEN AND PELVIS WITH CONTRAST: 06/07/2017 CLINICAL INDICATION: Followup perforated appendicitis. COMPARISON: 06/04/2017. TECHNIQUE: Axial CT images of the abdomen and pelvis were obtained with 100 mL Isovue 300 intravenously as well as oral contrast. FINDINGS: Limited evaluation of the lung bases demonstrates dependent atelectasis. ABDOMEN: The liver, spleen, pancreas, right kidney, and adrenal glands are unremarkable. The left kidney demonstrates a nonobstructing calculus in the lower pole. There is now trace free fluid adjacent to the liver. The abscess in the right lower quadrant demonstrates multiple locules, measuring up to 2.5 cm in diameter, with surrounding inflammation. No free intraperitoneal gas is appreciated. PELVIS: Sigmoid diverticulosis is present, without CT evidence of diverticulitis. Trace free fluid is now present. No pelvic adenopathy is appreciated. Osseous structures demonstrate degenerative changes. IMPRESSION: MULTILOCULATED PERIAPPENDICEAL ABSCESS IN THE RIGHT LOWER QUADRANT, WITH INDIVIDUAL LOCULES MEASURING UP TO 2.5 CM IN DIAMETER. TRACE FREE FLUID, NEW FROM PREVIOUS. In accordance with CT protocol optimization, one or more of the following dose reduction techniques were utilized for this exam: automated exposure control, adjustment of mA and/or KV based on patient size, or use of iterative reconstructive technique. TD: 06/07/2017 13:56
--- NOTE | 2017-06-07 18:08 | PROVIDER PROGRESS NOTE ---
Subjective - General Admit Date: 06/04/17 - Review of Systems General: positive: No symptoms HEENT: positive: No symptoms Pulmonary: positive: No symptoms Cardiovascular: positive: No symptoms Gastrointestinal: positive: No symptoms, Flatus, Other (Tenderness in RLQ but not pain.) Genitourinary: positive: No symptoms Musculoskeletal: positive: No symptoms Skin: positive: No symptoms Psychiatric: positive: No symptoms Objective - Patient Data Reviewed Vital Signs: Yes Vital Signs: Vital Signs x48h Temp Pulse Resp BP Pulse Ox 06/07/17 15:43 36.5 C 56 L 20 169/89 H 95 Intake & Output: Intake and Output Totals x24h 06/05/17 06/06/17 06/07/17 23:59 23:59 23:59 Intake Total 3611.667 3934.000 2885 Output Total 1600 Balance 2011.667 3934.000 2885 - Lab Results Lab Results: 06/07/17 05:02 06/07/17 05:02 Other Lab Results: Lab Results x24hrs 06/07/17 06/07/17 06/07/17 Range/Units 16:35 12:39 07:49 WBC (4.8-10.8) x10^3/uL RBC (4.70-6.10) 10^6/uL Hgb (14.0-18.0) g/dL Hct (42.0-52.0) % MCV (80.0-94.0) fL MCH (27.0-31.0) pg MCHC (32.0-36.0) g/dL RDW (12.0-15.0) % Plt Count (130-450) 10^3/uL MPV (7.4-11.4) fL PT (9.9-12.6) secs INR (0.8-1.2) Sodium (135-145) mmol/L Potassium (3.5-5.0) mmol/L Chloride (101-111) mmol/L Carbon Dioxide (21-32) mmol/L Anion Gap (6-13) BUN (6-20) mg/dL Creatinine (0.6-1.2) mg/dL Estimated GFR (MDRD) (>89) Glucose (70-100) mg/dL POC Whole Bld Glucose 153 H 172 H 155 H (70 - 100) mg/dL Calcium (8.5-10.3) mg/dL B-Natriuretic Peptide (5-100) pg/mL 18 06/07/17 06/07/17 Range/Units 05:02 05:02 05:02 WBC (4.8-10.8) x10^3/uL RBC (4.70-6.10) 10^6/uL Hgb (14.0-18.0) g/dL Hct (42.0-52.0) % MCV (80.0-94.0) fL MCH (27.0-31.0) pg MCHC (32.0-36.0) g/dL RDW (12.0-15.0) % Plt Count (130-450) 10^3/uL MPV (7.4-11.4) fL PT 26.6 H (9.9-12.6) secs INR 2.4 H (0.8-1.2) Sodium 133 L (135-145) mmol/L Potassium 3.5 (3.5-5.0) mmol/L Chloride 106 (101-111) mmol/L Carbon Dioxide 19 L (21-32) mmol/L Anion Gap 8.0 (6-13) BUN 27 H (6-20) mg/dL Creatinine 1.3 H (0.6-1.2) mg/dL Estimated GFR (MDRD) 55 L (>89) Glucose 174 H (70-100) mg/dL POC Whole Bld Glucose (70 - 100) mg/dL Calcium 8.4 L (8.5-10.3) mg/dL B-Natriuretic Peptide 656 H (5-100) pg/mL 18 06/06/17 Range/Units 05:02 20:32 WBC 8.1 (4.8-10.8) x10^3/uL RBC 3.56 L (4.70-6.10) 10^6/uL Hgb 10.6 L (14.0-18.0) g/dL Hct 31.1 L (42.0-52.0) % MCV 87.3 (80.0-94.0) fL MCH 29.8 (27.0-31.0) pg MCHC 34.1 (32.0-36.0) g/dL RDW 13.9 (12.0-15.0) % Plt Count 223 (130-450) 10^3/uL MPV 8.3 (7.4-11.4) fL PT (9.9-12.6) secs INR (0.8-1.2) Sodium (135-145) mmol/L Potassium (3.5-5.0) mmol/L Chloride (101-111) mmol/L Carbon Dioxide (21-32) mmol/L Anion Gap (6-13) BUN (6-20) mg/dL Creatinine (0.6-1.2) mg/dL Estimated GFR (MDRD) (>89) Glucose (70-100) mg/dL POC Whole Bld Glucose 234 H (70 - 100) mg/dL Calcium (8.5-10.3) mg/dL B-Natriuretic Peptide (5-100) pg/mL - Current Medications Current Medications: Current Medications Generic Name Dose Route Start Last Admin Trade Name Joe PRN Reason Stop Dose Admin Famotidine 50 mls @ 100 mls/hr 06/05/17 09:00 06/07/17 11:23 Pepcid 20 Mg/50 Ml IV Infused DAILY [facility] Infusion Piperacillin Sod/Tazobactam 100 mls @ 200 mls/hr 06/05/17 03:00 06/07/17 15: 24 Sod 3.375 gm/ Sodium Chloride IV Infused Q6H [facility] In[facility] Sodium Chloride 1,000 mls @ 80 mls/hr 06/04/17 22:00 06/07/17 16:12 Normal Saline 0.9% IV Infused .[id number] [facility] In[facility] Metronidazole 500 mg in 100 mls @ 100 mls/hr 06/04/17 23:00 06/07/17 17:35 Flagyl 500 Mg/100 Ml IV Infused Q6H [facility] In[facility] Insulin Aspart 1 - 5 unit 06/06/17 08:00 06/07/17 16:58 Novolog SUBQ 1 unit 0800,1200,1700,2100 [facility] Administration Protocol Insulin Glargine 20 unit 06/06/17 09:00 06/07/17 09:33 Lantus Solostar SUBQ 20 unit BID [facility] Administration Metoprolol Tartrate 12.5 mg 06/06/17 23:00 06/07/17 09:53 Lopressor PO 12.5 mg BID [facility] Administration Polyethylene Glycol 17 gm 06/05/17 09:00 06/07/17 09:50 Miralax PO Not Given DAILY [facility] Sodium Chloride 10 ml 06/04/17 22:00 06/07/17 12:33 Normal Saline Flush 0.9% IVP Not Given Q8HR [facility] - Physical Exam General Appearance: positive: No acute distress Eyes Bilateral: positive: No lid inflammation, Conjunctivae nml, No scleral icterus Neck: positive: Trachea midline Respiratory: positive: Chest non-tender, No respiratory distress, Breath sounds nml Cardiovascular: positive: Regular rate & rhythm Abdomen: positive: Nml bowel sounds, Tenderness (In RLQ.) Extremities: positive: Nml appearance Neurologic/Psychiatric: positive: Oriented x3 Impression/Plan - Problem List Problem List: Hospital day 3 for appendiceal phlegmon that appears to have organized into non- drainable abscesses (largest 2.5 cm). Patient is tolerating general diet and does not have a fever. The patient needs continued IV antibiotics and further observation to determine whether these abscesses will organize into something larger (and drainable) or whether they will become smaller and no intervention short of colonoscopy in 6 weeks followed by interval appendectomy (there are even articles suggesting that interval appendectomy may not be necessary) or whether the abscess will rupture leading to peritonitis and the need for emergent surgery. Plan in short is continued IV antibiotics and mobilization followed by a repeat CT scan in 48-72 hours. Continue following the patient looking for peritonitis or infection.
[2017-06-08] MEDS: metroNIDAZOLE 500 MG/100 ML 500 MG/100 ML BAG IV SCH ×5 (00:31→21:20)
[2017-06-08] MEDS: PIPERACILLIN/TAZOBACTAM 3.375 GM in SODIUM CHLORIDE 0.9% MINIBAG 100 ML IV SCH ×4 (03:00→20:46)
[2017-06-08] MEDS: SODIUM CHLORIDE FLUSH 0.9% 10 ML SYRINGE IVP SCH ×3 (03:36→21:18)
[2017-06-08] MEDS: SODIUM CHLORIDE FLUSH 0.9% 10 ML SYRINGE IVP PRN (05:45)
[2017-06-08] MEDS: FAMOTIDINE 20 MG/50 ML 50 ML IV SCH (08:59)
[2017-06-08] MEDS ORDERED: ASPIRIN EC 81 MG TABLET PO SCH (09:00)
[2017-06-08] MEDS: METOPROLOL TARTRATE 25 MG TABLET PO SCH ×2 (09:01→20:42)
[2017-06-08] MEDS: amLODIPine 5 MG TABLET PO SCH (09:01)
[2017-06-08] MEDS: PRAVASTATIN 40 MG TABLET PO SCH (09:01)
[2017-06-08] MEDS: INSULIN GLARGINE 300 UNIT/3 ML PEN SUBQ SCH ×2 (09:05→20:47)
[2017-06-08] MEDS: INSULIN ASPART 300 UNIT/3 ML PEN SUBQ SCH ×4 (09:06→20:47)
[2017-06-08] MEDS: POLYETHYLENE GLYCOL 3350 17 GM PACKET PO SCH (09:13)
--- NOTE | 2017-06-08 15:23 | PROVIDER PROGRESS NOTE ---
Subjective - General Admit Date: 06/04/17 - Review of Systems General: positive: Other (Says he is short of breath.) HEENT: positive: No symptoms Pulmonary: positive: No symptoms Cardiovascular: positive: No symptoms Gastrointestinal: positive: No symptoms, Flatus, Other (Tenderness in RLQ but not pain.) Genitourinary: positive: No symptoms Musculoskeletal: positive: No symptoms Skin: positive: No symptoms Psychiatric: positive: No symptoms Objective - Patient Data Reviewed Vital Signs: Yes Vital Signs: Vital Signs x48h Temp Pulse Resp BP BP Pulse Ox 06/08/17 13:00 36.8 C 67 21 127/58 L 94 06/08/17 09:01 132/70 H 06/08/17 08:02 36.8 C 82 20 166/93 H 94 Intake & Output: Intake and Output Totals x24h 06/06/17 06/07/17 06/08/17 23:59 23:59 23:59 Intake Total 3934.000 3035 1038.333 Balance 3934.000 3035 1038.333 - Lab Results Lab Results: 06/07/17 05:02 06/07/17 05:02 Other Lab Results: Lab Results x24hrs 06/08/17 06/08/17 06/07/17 Range/Units 11:24 07:22 20:15 POC Whole Bld Glucose 149 H 132 H 183 H (70 - 100) mg/dL 06/07/17 Range/Units 16:35 POC Whole Bld Glucose 153 H (70 - 100) mg/dL - Current Medications Current Medications: Current Medications Generic Name Dose Route Start Last Admin Trade Name Kalinq PRN Reason Stop Dose Admin Amlodipine Besylate 10 mg 06/08/17 09:00 06/08/17 09:01 Norvasc PO 10 mg DAILY [facility] Administration Famotidine 50 mls @ 100 mls/hr 06/05/17 09:00 06/08/17 10:18 Pepcid 20 Mg/50 Ml IV Infused DAILY [facility] Piperacillin Sod/Tazobactam 100 mls @ 200 mls/hr 06/05/17 03:00 06/08/17 14: 43 Sod 3.375 gm/ Sodium Chloride IV 200 mls/hr Q6H [facility] Administration Sodium Chloride 1,000 mls @ 80 mls/hr 06/04/17 22:00 06/07/17 20:27 Normal Saline 0.9% IV 80 mls/hr .[id number] [facility] Administration Metronidazole 500 mg in 100 mls @ 100 mls/hr 06/04/17 23:00 06/08/17 12:23 Flagyl 500 Mg/100 Ml IV Infused Q6H [facility] Insulin Aspart 1 - 5 unit 06/06/17 08:00 06/08/17 12:21 Novolog SUBQ 1 unit 0800,1200,1700,2100 [facility] Administration Protocol Insulin Glargine 20 unit 06/06/17 09:00 06/08/17 09:05 Lantus Solostar SUBQ 20 unit BID [facility] Administration Metoprolol Tartrate 12.5 mg 06/06/17 23:00 06/08/17 09:01 Lopressor PO 12.5 mg BID [facility] Administration Polyethylene Glycol 17 gm 06/05/17 09:00 06/08/17 09:13 Miralax PO Not Given DAILY [facility] Pravastatin Sodium 40 mg 06/08/17 09:00 06/08/17 09:01 Pravachol PO 40 mg DAILY [facility] Administration Sodium Chloride 10 ml 06/04/17 21:23 06/08/17 05:45 Normal Saline Flush 0.9% IVP 10 ml PRN PRN Administration NEEDED PER PROVIDER ORDERS Sodium Chloride 10 ml 06/04/17 22:00 06/08/17 12:54 Normal Saline Flush 0.9% IVP Not Given Q8HR [facility] - Physical Exam General Appearance: positive: No acute distress Eyes Bilateral: positive: No lid inflammation, Conjunctivae nml, No scleral icterus Neck: positive: Trachea midline Respiratory: positive: Chest non-tender, No respiratory distress, Breath sounds nml Cardiovascular: positive: Irregularly irregular Abdomen: positive: Tenderness (in RLQ but less than yesterday) Extremities: positive: Non-tender, Nml appearance Neurologic/Psychiatric: positive: Oriented x3 Impression/Plan - Problem List Problem List: Hospital day 4 for appendiceal phlegmon which has organized into abscesses too small to drain. The patient should continue to take nutrition orally and ambulate as much as possible. We should continue the IV antibiotics with an eye towards repeating the CAT scan in 2 days time. If the cat scan shows a larger abscess the drainage can be performed percutaneously at an institution that has interventional radiology. If the abscesses are smaller then I believe it would be safe to send the patient home on oral antibiotics for at least a 10 day course and consideration of a 14 day course. With regards to his new shortness of breath I have had his oxygen saturation checked and it is 94% on room air and a chest x-ray will be ordered. I think the likelihood of him having a pulmonary embolus or a deep venous thrombosis is low with his elevated INR. From a surgical standpoint I am strictly here on standby should the patient require urgent surgical intervention.
[2017-06-08] MEDS: SODIUM CHLORIDE 0.9% 1,000 ML IV SCH ×2 (17:02→17:08)
--- NOTE | 2017-06-08 17:13 | XRAY Preliminary Report ---
Exam: XR CHEST 2 VIEW X-RAY IMPRESSION: New mild diffuse bilateral airspace disease and interstitial prominence concerning for ne w mild pulmonary edema. Pneumonia not excluded. [facility] SITE ID: [id number]
--- NOTE | 2017-06-08 17:13 | XRAY Report ---
EXAM: CHEST RADIOGRAPHY EXAM DATE: 06/08/2017 04:38 PM. CLINICAL HISTORY: Shortness of breath. COMPARISON: Chest 06/04/2017. TECHNIQUE: 2 views. FINDINGS: New mild diffuse bilateral airspace disease and interstitial prominence concerning for new mild pulmonary edema. Pneumonia not excluded. No pleural effusion or pneumothorax. Borderline cardiom egaly. IMPRESSION: New mild diffuse bilateral airspace disease and interstitial prominence concerning for ne w mild pulmonary edema. Pneumonia not excluded. [facility] Referring Provider Line: [phone] SITE ID: [id number]
--- NOTE | 2017-06-08 18:20 | PROVIDER PROGRESS NOTE ---
Subjective - Prog Note Date Prog Note Date: 06/08/17 Prog Note Time: 18:16 - Subjective Pt reports feeling: No change Current Medications - Current Medications Current Medications: Acetaminophen, Norvasc, aspirin, famotidine, insulin, metoprolol, metronidazole , morphine, acetaminophen, ondansetron, Zosyn, polyethylene glycol, Pravachol, and sodium chloride Objective - Vital Signs/Intake & Output Reviewed Vital Signs: Yes Vital Signs: Vital Signs x48h Temp Pulse Resp BP BP Pulse Ox 06/08/17 15:30 37.1 C 78 24 147/63 H 92 06/08/17 13:00 36.8 C 67 21 127/58 L 94 Intake & Output: Intake & Output 06/05/17 06/06/17 06/07/17 06/08/17 23:59 23:59 23:59 23:59 Intake Total 3611.667 3934.000 3035 2478.333 Output Total 1600 125 Balance 2011.667 3934.000 3035 2353.333 - Objective General Appearance: positive: No acute distress, Alert Eyes Bilateral: positive: Normal inspection, PERRL, EOMI, No lid inflammation, Conjunctivae nml, No scleral icterus ENT: positive: ENT inspection nml, Pharynx nml, No signs of dehydration Neck: positive: Nml inspection, Thyroid nml, No JVD, Trachea midline. negative : Thyromegaly Respiratory: positive: Chest non-tender, No respiratory distress, Breath sounds nml. negative: Wheezes, Rales, Rhonchi Cardiovascular: positive: Regular rate & rhythm, No murmur, No gallop Abdomen: positive: Non-tender, No organomegaly, Nml bowel sounds, No distention. negative: Guarding, Rebound Back: positive: Nml inspection. negative: CVA tenderness (R), CVA tenderness (L ) Skin: positive: Color nml, No rash, Warm, Dry. negative: Cyanosis Extremities: positive: Non-tender, Full ROM, Nml appearance Neurologic/Psychiatric: positive: Oriented x3, CN's nml (2-12), Motor nml, Sensation nml, Mood/affect nml - Lab Results Fish Bones: 06/07/17 05:02 06/07/17 05:02 Other Labs: Lab Results x24hrs 06/08/17 06/08/17 06/08/17 Range/Units 16:16 11:24 07:22 POC Whole Bld Glucose 146 H 149 H 132 H (70 - 100) mg/dL 06/07/17 Range/Units 20:15 POC Whole Bld Glucose 183 H (70 - 100) mg/dL Assessment/Plan - Problem List (1) Phlegmon Impression: This has now consolidated into an abscess according to the last CT. I spoke with Dr. Aguilar at length and the plan at this time is to continue with IV antibiotics and to re-check the abdomen with another CT scan in 3 days. If the abscess has grown to a size that may be aspirated that will be done otherwise we will discharge the patient to be followed up as an outpatient for an elective appendectomy/drainage of abscess. (3) Atrial fibrillation with slow ventricular response Impression: Rate controlled at this time. Continue present care. (4) Sepsis Impression: There is no longer any evidence of sepsis as the patient's creatinine is almost back to normal and there are no signs of any type of leukocytosis or fever. (5) Supratherapeutic INR Impression: Corrected, INR yesterday was 2.4.On admission the INR was 10.5 (7) Diastolic CHF Impression: Controlled. Continue present care.
[2017-06-08] MEDS ORDERED: FUROSEMIDE 20 MG/2 ML VIAL IVP SCH (21:30)
[2017-06-09] MEDS: PIPERACILLIN/TAZOBACTAM 3.375 GM in SODIUM CHLORIDE 0.9% MINIBAG 100 ML IV SCH ×4 (03:36→22:16)
[2017-06-09] MEDS: SODIUM CHLORIDE FLUSH 0.9% 10 ML SYRINGE IVP PRN ×2 (03:36→11:50)
[2017-06-09] MEDS: metroNIDAZOLE 500 MG/100 ML 500 MG/100 ML BAG IV SCH ×4 (05:22→22:59)
[2017-06-09] MEDS: SODIUM CHLORIDE FLUSH 0.9% 10 ML SYRINGE IVP SCH ×5 (05:23→22:19)
--- NOTE | 2017-06-09 07:20 | PROVIDER PROGRESS NOTE ---
Subjective - General Admit Date: 06/04/17 - Review of Systems General: positive: Other (Patient states he is much less short of breath. Eating, farting, passing stool, abdominal pain is better.) HEENT: positive: No symptoms Pulmonary: positive: No symptoms Cardiovascular: positive: No symptoms Gastrointestinal: positive: No symptoms, Flatus, Other (Tenderness in RLQ but not pain.) Genitourinary: positive: No symptoms Musculoskeletal: positive: No symptoms Skin: positive: No symptoms Psychiatric: positive: No symptoms - Other Other Information/Narrative: Hospital day 5 for appendiceal phlegmon which has organized into abscesses too small to drain and has responded very well to antibiotics. The patient should continue to take nutrition orally and ambulate as much as possible. We should continue the IV antibiotics with an eye towards repeating the CAT scan tomorrow (ordered). If the cat scan shows a larger abscess the drainage can be performed percutaneously at an institution that has interventional radiology. If the abscesses are smaller then I believe it would be safe to send the patient home on oral antibiotics for at least a 10 day course and consideration of a 14 day course. The workup of his shortness of breath did not identify an etiology. The patient MUST walk as much as possible with 5 FULL laps of the nurses station a necessity. From a surgical standpoint I am strictly here on standby should the patient require urgent surgical intervention. Objective - Patient Data Reviewed Vital Signs: Yes Vital Signs: Vital Signs x48h Temp Pulse Resp BP Pulse Ox 06/09/17 04:40 37.0 C 78 20 143/78 H 95 06/09/17 01:01 37.1 C 73 20 146/63 H 92 Intake & Output: Intake and Output Totals x24h 06/07/17 06/08/17 06/09/17 23:59 23:59 23:59 Intake Total 3035 3678.333 450 Output Total 125 1150 Balance 3035 3553.333 -700 - Lab Results Lab Results: 06/07/17 05:02 06/07/17 05:02 Other Lab Results: Lab Results x24hrs 06/08/17 06/08/17 06/08/17 Range/Units 20:40 20:40 20:27 POC Whole Bld Glucose 197 H (70 - 100) mg/dL Troponin I < 0.04 (<0.49) ng/mL B-Natriuretic Peptide 931 H (5-100) pg/mL 06/08/17 06/08/17 06/08/17 Range/Units 16:16 11:24 07:22 POC Whole Bld Glucose 146 H 149 H 132 H (70 - 100) mg/dL Troponin I (<0.49) ng/mL B-Natriuretic Peptide (5-100) pg/mL - Imaging Results Radiology Imaging: positive: Prelim report reviewed, Final report received, EMP read indepedently - Current Medications Current Medications: Current Medications Generic Name Dose Route Start Last Admin Trade Name Freq PRN Reason Stop Dose Admin Amlodipine Besylate 10 mg 06/08/17 09:00 06/08/17 09:01 Norvasc PO 10 mg DAILY QUIANA Administration Famotidine 50 mls @ 100 mls/hr 06/05/17 09:00 06/08/17 10:18 Pepcid 20 Mg/50 Ml IV Infused DAILY QUIANA Infusion Piperacillin Sod/Tazobactam 100 mls @ 200 mls/hr 06/05/17 03:00 06/09/17 04: 10 Sod 3.375 gm/ Sodium Chloride IV Infused Q6H QUIANA Infusion Metronidazole 500 mg in 100 mls @ 100 mls/hr 06/04/17 23:00 06/09/17 06:34 Flagyl 500 Mg/100 Ml IV Infused Q6H QUIANA Infusion Insulin Aspart 1 - 5 unit 06/06/17 08:00 06/08/17 20:47 Novolog SUBQ 2 unit 0800,1200,1700,2100 QUIANA Administration Protocol Insulin Glargine 20 unit 06/06/17 09:00 06/08/17 20:47 Lantus Solostar SUBQ 20 unit BID QUIANA Administration Metoprolol Tartrate 12.5 mg 06/06/17 23:00 06/08/17 20:42 Lopressor PO 12.5 mg BID QUIANA Administration Polyethylene Glycol 17 gm 06/05/17 09:00 06/08/17 09:13 Miralax PO Not Given DAILY QUIANA Pravastatin Sodium 40 mg 06/08/17 09:00 06/08/17 09:01 Pravachol PO 40 mg DAILY QUIANA Administration Sodium Chloride 10 ml 06/04/17 21:23 06/09/17 03:36 Normal Saline Flush 0.9% IVP 10 ml PRN PRN Administration NEEDED PER PROVIDER ORDERS Sodium Chloride 10 ml 06/04/17 22:00 06/09/17 05:23 Normal Saline Flush 0.9% IVP 10 ml Q8HR QUIANA Administration - Physical Exam General Appearance: positive: No acute distress, Other (Lying in bed awake.) Eyes Bilateral: positive: No lid inflammation, Conjunctivae nml, No scleral icterus Neck: positive: Trachea midline Respiratory: positive: Chest non-tender, No respiratory distress, Breath sounds nml Cardiovascular: positive: Regular rate & rhythm Abdomen: positive: Nml bowel sounds, Tenderness (Markedly decreased tenderness.) Skin: positive: Color nml Extremities: positive: Non-tender, Nml appearance Neurologic/Psychiatric: positive: Oriented x3
[2017-06-09] MEDS: amLODIPine 5 MG TABLET PO SCH (08:51)
[2017-06-09] MEDS: FUROSEMIDE 20 MG TABLET PO SCH (08:52)
[2017-06-09] MEDS: PRAVASTATIN 40 MG TABLET PO SCH (08:52)
[2017-06-09] MEDS: METOPROLOL TARTRATE 25 MG TABLET PO SCH ×2 (08:53→22:19)
[2017-06-09] MEDS: INSULIN GLARGINE 300 UNIT/3 ML PEN SUBQ SCH ×2 (08:56→22:18)
[2017-06-09] MEDS: POLYETHYLENE GLYCOL 3350 17 GM PACKET PO SCH (08:58)
[2017-06-09] MEDS: INSULIN ASPART 300 UNIT/3 ML PEN SUBQ SCH ×4 (08:59→22:17)
[2017-06-09 09:06] LABS: CALCIUM 8.5 mg/dL (8.5-10.3); CREATININE 1.3 mg/dL (0.6-1.2)
[2017-06-09] MEDS: FAMOTIDINE 20 MG/50 ML 50 ML IV SCH (09:44)
[2017-06-09] MEDS: LISINOPRIL 20 MG TABLET PO SCH (11:06)
--- NOTE | 2017-06-09 16:12 | PROVIDER PROGRESS NOTE ---
Subjective - Prog Note Date Prog Note Date: 06/09/17 Prog Note Time: 15:30 - Subjective Pt reports feeling: No change (Patient denies any pain or any other new problems. He says he feels "okay".) Current Medications - Current Medications Current Medications: Acetaminophen, Norvasc, aspirin, famotidine, insulin, metoprolol, metronidazole , morphine, acetaminophen, ondansetron, Zosyn, polyethylene glycol, Pravachol, and sodium chloride Objective - Vital Signs/Intake & Output Reviewed Vital Signs: Yes Vital Signs: Vital Signs x48h Temp Pulse Resp BP Pulse Ox 06/09/17 15:48 36.8 C 115 H 18 134/80 H 97 06/09/17 12:30 36.2 C L 61 18 127/82 H 98 06/09/17 08:25 36.6 C 72 20 157/84 H 97 Intake & Output: Intake & Output 06/06/17 06/07/17 06/08/17 06/09/17 23:59 23:59 23:59 23:59 Intake Total 3934.000 3035 3678.333 1640 Output Total 125 1150 Balance 3934.000 3035 3553.333 490 - Objective General Appearance: positive: No acute distress, Alert Eyes Bilateral: positive: Normal inspection, PERRL, EOMI, No lid inflammation, Conjunctivae nml, No scleral icterus ENT: positive: ENT inspection nml, Pharynx nml, No signs of dehydration Neck: positive: Nml inspection, Thyroid nml, No JVD, Trachea midline. negative : Thyromegaly Respiratory: positive: Chest non-tender, No respiratory distress, Breath sounds nml. negative: Wheezes, Rales, Rhonchi Cardiovascular: positive: Regular rate & rhythm, No murmur, No gallop Abdomen: positive: Non-tender, No organomegaly, Nml bowel sounds. negative: Guarding, Rebound Back: positive: Nml inspection. negative: CVA tenderness (R), CVA tenderness (L ) Skin: positive: Color nml, No rash, Warm, Dry. negative: Cyanosis Extremities: positive: Non-tender, Full ROM, Nml appearance, No pedal edema Neurologic/Psychiatric: positive: Oriented x3, CN's nml (2-12), Motor nml, Sensation nml, Mood/affect nml - Lab Results Fish Bones: 06/07/17 05:02 06/09/17 08:53 Other Labs: Lab Results x24hrs 06/09/17 06/09/17 06/09/17 Range/Units 11:04 08:53 07:38 Sodium 136 (135-145) mmol/L Potassium 3.0 L (3.5-5.0) mmol/L Chloride 101 (101-111) mmol/L Carbon Dioxide 22 (21-32) mmol/L Anion Gap 13.0 (6-13) BUN 16 (6-20) mg/dL Creatinine 1.3 H (0.6-1.2) mg/dL Estimated GFR (MDRD) 55 L (>89) Glucose 151 H (70-100) mg/dL POC Whole Bld Glucose 174 H 96 (70 - 100) mg/dL Calcium 8.5 (8.5-10.3) mg/dL Troponin I (<0.49) ng/mL B-Natriuretic Peptide (5-100) pg/mL Blood Type 06/08/17 06/08/17 06/08/17 Range/Units 20:40 20:40 20:27 Sodium (135-145) mmol/L Potassium (3.5-5.0) mmol/L Chloride (101-111) mmol/L Carbon Dioxide (21-32) mmol/L Anion Gap (6-13) BUN (6-20) mg/dL Creatinine (0.6-1.2) mg/dL Estimated GFR (MDRD) (>89) Glucose (70-100) mg/dL POC Whole Bld Glucose 197 H (70 - 100) mg/dL Calcium (8.5-10.3) mg/dL Troponin I < 0.04 (<0.49) ng/mL B-Natriuretic Peptide 931 H (5-100) pg/mL Blood Type 06/08/17 06/04/17 Range/Units 16:16 22:53 Sodium (135-145) mmol/L Potassium (3.5-5.0) mmol/L Chloride (101-111) mmol/L Carbon Dioxide (21-32) mmol/L Anion Gap (6-13) BUN (6-20) mg/dL Creatinine (0.6-1.2) mg/dL Estimated GFR (MDRD) (>89) Glucose (70-100) mg/dL POC Whole Bld Glucose 146 H (70 - 100) mg/dL Calcium (8.5-10.3) mg/dL Troponin I (<0.49) ng/mL B-Natriuretic Peptide (5-100) pg/mL Blood Type O POSITIVE Assessment/Plan - Problem List (1) Phlegmon Impression: This has now consolidated into an abscess according to the last CT. I spoke with Dr. Aguilar at length and the plan at this time is to continue with IV antibiotics and to re-check the abdomen with another CT scan tomorrow. If the abscess has grown to a size that may be aspirated that will be done otherwise we will discharge the patient to be followed up as an outpatient for an elective appendectomy/drainage of abscess. (3) Atrial fibrillation with slow ventricular response Impression: Rate controlled at this time. Continue present care. (4) Sepsis Impression: There is no longer any evidence of sepsis as the patient's creatinine is almost back to normal and there are no signs of any type of leukocytosis or fever. (5) Supratherapeutic INR Impression: Corrected, INR wednesday was 2.4. On admission the INR was 10.5 (7) Diastolic CHF Impression: Controlled. Continue present care.
[2017-06-09] MEDS: POTASSIUM CHLORIDE 20 MEQ TABLET PO SCH (22:15)
[2017-06-10] MEDS: PIPERACILLIN/TAZOBACTAM 3.375 GM in SODIUM CHLORIDE 0.9% MINIBAG 100 ML IV SCH ×2 (03:54→09:35)
[2017-06-10] MEDS: SODIUM CHLORIDE FLUSH 0.9% 10 ML SYRINGE IVP PRN (03:56)
[2017-06-10] MEDS ORDERED: IOPAMIDOL-300 100 ML VIAL ONE (04:10)
[2017-06-10] MEDS ORDERED: IOPAMIDOL-300 50 ML VIAL ONE (04:10)
[2017-06-10 05:04] LABS: MEAN CORPUSCULAR HEMOGLOBIN 29.2 pg (27.0-31.0); MEAN CORPUSCULAR HGB CONC 33.8 g/dL (32.0-36.0); MEAN CORPUSCULAR VOLUME 86.6 fL (80.0-94.0); RED BLOOD COUNT 3.43 10^6/uL (4.70-6.10); RED CELL DISTRIBUTION WIDTH 14.1 % (12.0-15.0); WHITE BLOOD COUNT 9.4 x10^3/uL (4.8-10.8)
[2017-06-10 05:20] LABS: CALCIUM 8.5 mg/dL (8.5-10.3); CREATININE 1.2 mg/dL (0.6-1.2)
[2017-06-10] MEDS ORDERED: IOPAMIDOL-300 50 ML VIAL PO ONE (05:34)
[2017-06-10] MEDS ORDERED: IOPAMIDOL-300 100 ML VIAL IVP ONE (05:34)
[2017-06-10] MEDS: metroNIDAZOLE 500 MG/100 ML 500 MG/100 ML BAG IV SCH ×2 (05:49→10:57)
[2017-06-10] MEDS: SODIUM CHLORIDE FLUSH 0.9% 10 ML SYRINGE IVP SCH (05:50)
--- NOTE | 2017-06-10 06:14 | CT Preliminary Report ---
Exam: CT ABDOMEN/PELVIS W/ IMPRESSION: 1. Slight increased soft tissue thickening of the base of the cecum, representing slightly increased inflammatory change. Multiloculated right lower quadrant appendiceal abscess again noted, with slight ly increased size of the proximal locule. Distal locule is stable. 2. Lung bases with appearance of mild pulmonary edema. Small bilateral effusions have developed. [facility] SITE ID: [id number]
--- NOTE | 2017-06-10 06:27 | CT Report ---
EXAM: CT ABDOMEN AND PELVIS EXAM DATE: 06/10/2017 05:42 AM. CLINICAL HISTORY: Appendiceal abscess follow-up. COMPARISONS: None. TECHNIQUE: Routine helical CT imaging was performed through the abdomen and pelvis. IV contrast: 80 m L Isovue 300. Enteric contrast: Present. Reconstructions: Coronal and sagittal. In accordance with CT protocol optimization, one or more of the following dose reduction techniques w ere utilized for this exam: automated exposure control, adjustment of mA and/or KV based on patient s ize, or use of iterative reconstructive technique. FINDINGS: ABDOMEN: Liver: No significant abnormality. Stomach/Distal Esophagus: There is a small hiatal hernia. Gallbladder: Surgically absent. Bile Ducts: No significant abnormality. Pancreas: No significant abnormality. Spleen: No significant abnormality. Kidneys: No suspicious solid appearing lesion. No hydronephrosis. There is a 12 mm bilobed stone with in the lower pole of the left kidney (image 57 series 3). This is similar to the prior study. Adrenals: No significant abnormality. Bowel: Wall thickening at the base of the cecum, near the appendiceal orifice is again noted, slightl y increased from the prior study. Severe sigmoid diverticulosis without diverticulitis. Appendix: Multiloculated appendiceal abscesses within the right lower quadrant region are again seen. The dominant locule proximally measures 3.3 cm (image 63 series 3), versus previously 3.0 cm when me asured in a similar fashion. The smaller distal locule measures 3 cm (image 61 series 3), stable in a ppearance from the prior exam. Moderate surrounding fat stranding is again seen. Lymph Nodes: No pathologically enlarged nodes. Vasculature: Normal caliber aorta. Fluid: No significant free fluid. Abdominal Wall: No significant abnormality. Other: No significant abnormality. PELVIS: Prostate and Seminal Vesicles: No significant abnormality. Bladder: No significant abnormality. Lymph Nodes: No pathologically enlarged nodes. Fluid: No significant free fluid. Other: Small bilateral fat containing inguinal hernias. BONES: No suspicious bony lesions. LOWER CHEST: Small bilateral effusions are present. There are parahilar lobular hazy opacities. Septa l thickening within the lung bases. Small hiatal hernia noted. Severe coronary vascular calcification . IMPRESSION: 1. Slight increased soft tissue thickening at the base of the cecum, representing slightly increased inflammatory change. Multiloculated right lower quadrant appendiceal abscess again noted, with slight ly increased size of the proximal locule. Distal locule is stable. 2. Lung bases with appearance of mild pulmonary edema. Small bilateral effusions have developed. [facility] Referring Provider Line: [phone] SITE ID: [id number]
[2017-06-10] MEDS: INSULIN ASPART 300 UNIT/3 ML PEN SUBQ SCH ×2 (09:27→11:21)
[2017-06-10] MEDS: FAMOTIDINE 20 MG/50 ML 50 ML IV SCH (09:28)
[2017-06-10] MEDS: amLODIPine 5 MG TABLET PO SCH (09:30)
[2017-06-10] MEDS: METOPROLOL TARTRATE 25 MG TABLET PO SCH (09:30)
[2017-06-10] MEDS: LISINOPRIL 20 MG TABLET PO SCH (09:35)
[2017-06-10] MEDS: POTASSIUM CHLORIDE 20 MEQ TABLET PO SCH (09:35)
[2017-06-10] MEDS: PRAVASTATIN 40 MG TABLET PO SCH (09:35)
[2017-06-10] MEDS: FUROSEMIDE 20 MG TABLET PO SCH (09:35)
[2017-06-10] MEDS: POLYETHYLENE GLYCOL 3350 17 GM PACKET PO SCH ×2 (09:36→09:48)
[2017-06-10] MEDS: INSULIN GLARGINE 300 UNIT/3 ML PEN SUBQ SCH (09:36)
--- NOTE | 2017-06-10 11:13 | Discharge Plan ---
Discharge Plan Disposition: Home, Self Care Condition: Stable Prescriptions: Levofloxacin [Levaquin] 500 mg PO DAILY #7 tablet Metronidazole [Flagyl] 500 mg PO TID #21 tablet Diet: Regular Activity Restrictions: Activity as Tolerated Shower Restrictions: No Driving Restrictions: No Weight Bearing: Full Weight Additional Instructions or Follow Up instructions: You were found to have an abscess pocket of infection around your appendix. It does not seem to be getting much larger and so your surgeon wants you to go home on oral antibiotics, specifically Levaquin and Flagyl. *It is very important that you get a follow-up CAT scan of your abdomen and pelvis with contrast on 06/16/[address] Aguilar the following day on , 06/17/17. No Smoking: If you smoke, Please STOP! Call for help. Follow-up with: Chun Aguilar MD [Provider Admit Priv/Credential] -
--- NOTE | 2017-06-10 11:30 | DISCHARGE SUMMARY ---
"Discharge Summary Admit Date: 06/04/17 Discharge Date: 06/10/17 Discharging Provider: Aleta Caro DO Primary Care Provider: [facility] Dameon Lala Code Status: Attempt Resuscitation Condition at Discharge: Stable Discharge Disposition: 01 Home, Self Care - DIAGNOSES Admission Diagnoses: 1. Sepsis 2. Acute renal failure in the setting of sepsis 3. Anion gap metabolic acidosis 4. Hypoglycemic 5. Atrial fibrillation with controlled ventricular rate 6. Coumadin anticoagulation. Discharge Diagnoses with Status of Each Condition: 1. Sepsis - No signs of infection for many dayswhite blood cell count is 9.4, no fevers. 2. Acute renal failure in the setting of sepsis - Creatinine was 2.3 on admission and has slowly climbed down to 1.2 today. 3. Anion gap metabolic acidosis - Corrected. 4. Hyperglycemia -Corrected, glucose 143 today. 5. Atrial fibrillation with controlled ventricular rate- Atrial fibrillation remains rate controlled. Continue current medication regimen. 6. Coumadin anticoagulation- Patient's INR had been over 10 on admission, it is now down to 2.4.. - HPI History of Present Illness: From Dr. Mcqueen's H&P: The patient is a 67-year-old white male with a past medical history of multiple chronic medical problems including paroxysmal atrial fibrillation, insulin- dependent diabetes, hypertension, left ventricular hypertrophy/diastolic congestive heart failure. He is [place] connected and his primary care physician is Dr. Solis. He was in his usual state of health up to about 2 weeks ago when he developed excruciating right-sided back pain. The pain was 10 out of 10 in intensity and he was able to tolerate this for about a week and then went to see his PCP who evaluated him and felt that he might have kidney stones. The patient does not report any evaluation such as laboratory workup, urine evaluation or any scans. He was recommended to drink a lot of fluids and was sent from the clinic home. Subsequently, the patient was drinking a lot of cranberry juice and diet soda, as he had no appetite and could not eat his meals. He was nauseous and had some shakes. He did not always take his insulin as he was not eating. Subsequently, on the evening of June 04 he felt acutely ill and could not bear the pain anymore; therefore, he came to the ER for evaluation. Upon presentation to the emergency department the patient was hemodynamically stable and afebrile. EKG showed atrial fibrillation with controlled ventricular rate. There was no signs of ischemia. Labs showed acute renal failure, creatinine 2.3, which was elevated from the last previous creatinine of 1.2. Blood glucose was 373. The white blood cell count was normal and there was an anion gap metabolic acidosis with a gap of 17, carbon dioxide 20. Troponin was negative. Influenza screen was negative. Urinalysis was unremarkable. The patient was admitted to the hospital with a diagnosis of appendiceal phlegmon - CONSULTS | PROCEDURES Consultations: Dr Sharad Aguilar, General surgery - HOSPITAL COURSE Hospital Course: The patient was admitted and placed on IV antibiotics. A repeat CAT scan of the abdomen showed that the phlegmon consolidated into 2 appendiceal abscesses approximately [address] Aguilar decided to continue the patient on IV antibiotics for another 3 days [address] a [address] scan showed very little change in the abscesses. Based on this Dr. Aguilar recommends that the patient be discharged home on oral antibiotics, specifically Levaquin and Flagyl , have a repeat CAT scan in 6 days and follow-up with Dr. Aguilar in 7 days. - ALLERGIES Allergies/Adverse Reactions: Allergies Allergy/AdvReac Type Severity Reaction Status Date / Time No Known Drug Allergies Allergy Verified 06/04/17 16:36 - MEDICATIONS Home Medications: Ambulatory Orders Medication Instructions Recorded Confirmed Aspirin [Aspirin EC] 81 mg PO DAILY 04/02/16 06/05/17 Gemfibrozil [Lopid] 600 mg PO BIDAC 04/02/16 06/05/17 Lisinopril 40 mg PO DAILY 04/02/16 06/05/17 Metformin HCl [Glucophage] 1,275 mg PO BID 04/02/16 06/05/17 Hooven-3/Dha/Epa/Fish Oil [Fish Oil 3,000 mg PO BID 04/02/16 06/05/17 1,000 mg Softgel] Pravastatin Sodium [Pravachol] 40 mg PO DAILY 04/02/16 06/05/17 Spironolactone [Aldactone] 50 mg PO DAILY 04/02/16 06/05/17 Terazosin HCl 20 mg PO DAILY 04/02/16 06/05/17 amLODIPine [Norvasc] 10 mg PO DAILY 04/02/16 06/05/17 Insulin Glargine [Lantus Solostar] 80 unit SUBQ BID 04/03/16 06/05/17 Insulin Regular Human [NovoLIN R] 30 unit SUBQ .QBREAKFAST&DINNER 04/03/1606/05 Multivitamin [Theragran] 1 tab PO DAILY tablet 04/03/16 06/05/17 Warfarin [Coumadin] 5 mg PO QDWARFARIN #30 tablet 04/04/16 06/05/17 Furosemide 20 mg PO DAILY 06/05/17 06/05/17 Levofloxacin [Levaquin] 500 mg PO DAILY #7 tablet 06/10/17 Metronidazole [Flagyl] 500 mg PO TID #21 tablet 06/10/17 - PHYSICAL EXAM AT DISCHARGE General Appearance: positive: No acute distress, Alert Eyes Bilateral: positive: Normal inspection, PERRL, EOMI, No lid inflammation, Conjunctivae nml, No scleral icterus ENT: positive: ENT inspection nml, Pharynx nml, No signs of dehydration Neck: positive: Nml inspection, Thyroid nml, No JVD, Trachea midline. negative : Thyromegaly Respiratory: positive: Chest non-tender, No respiratory distress, Breath sounds nml. negative: Wheezes, Rales, Rhonchi Cardiovascular: positive: Regular rate & rhythm, No murmur, No gallop Peripheral Pulses: positive: 1+ Abdomen: positive: Non-tender, No organomegaly, Nml bowel sounds, No distention. negative: Guarding, Rebound Back: positive: Nml inspection. negative: CVA tenderness (R), CVA tenderness (L ) Skin: positive: Color nml, No rash, Warm, Dry. negative: Cyanosis Extremities: positive: Non-tender, Full ROM, Nml appearance, No pedal edema Neurologic/Psychiatric: positive: Oriented x3, CN's nml (2-12), Motor nml, Sensation nml, Mood/affect nml - LABS Result Diagrams: 06/10/17 04:50 06/10/17 04:50 - DIAGNOSTIC IMAGING Diagnostic Imaging Results: Final report reviewed Diagnostic Imaging Results Comments: EXAM: CT ABDOMEN AND PELVIS EXAM DATE: 06/10/2017 05:42 AM. CLINICAL HISTORY: Appendiceal abscess follow-up. COMPARISONS: None. TECHNIQUE: Routine helical CT imaging was performed through the abdomen and pelvis. IV contrast: 80 mL Isovue 300. Enteric contrast: Present. Reconstructions: Coronal and sagittal. In accordance with CT protocol optimization, one or more of the following dose reduction techniques were utilized for this exam: automated exposure control, adjustment of mA and/or KV based on patient size, or use of iterative reconstructive technique. FINDINGS: ABDOMEN: Liver: No significant abnormality. Stomach/Distal Esophagus: There is a small hiatal hernia. Gallbladder: Surgically absent. Bile Ducts: No significant abnormality. Pancreas: No significant abnormality. Spleen: No significant abnormality. Kidneys: No suspicious solid appearing lesion. No hydronephrosis. There is a 12 mm bilobed stone within the lower pole of the left kidney (image 57 series 3). This is similar to the prior study. Adrenals: No significant abnormality. Bowel: Wall thickening at the base of the cecum, near the appendiceal orifice is again noted, slightly increased from the prior study. Severe sigmoid diverticulosis without diverticulitis. Appendix: Multiloculated appendiceal abscesses within the right lower quadrant region are again seen. The dominant locule proximally measures 3.3 cm (image 63 series 3), versus previously 3.0 cm when measured in a similar fashion. The smaller distal locule measures 3 cm ( image 61 series 3), stable in appearance from the prior exam. Moderate surrounding fat stranding is again seen. Lymph Nodes: No pathologically enlarged nodes. Vasculature: Normal caliber aorta. Fluid: No significant free fluid. Abdominal Wall: No significant abnormality. Other: No significant abnormality. PELVIS: Prostate and Seminal Vesicles: No significant abnormality. Bladder: No significant abnormality. Lymph Nodes: No pathologically enlarged nodes. Fluid: No significant free fluid. Other: Small bilateral fat containing inguinal hernias. BONES: No suspicious bony lesions. LOWER CHEST: Small bilateral effusions are present. There are parahilar lobular hazy opacities. Septal thickening within the lung bases. Small hiatal hernia noted. Severe coronary vascular calcification. IMPRESSION: 1. Slight increased soft tissue thickening at the base of the cecum, representing slightly increased inflammatory change. Multiloculated right lower quadrant appendiceal abscess again noted, with slightly increased size of the proximal locule. Distal locule is stable. 2. Lung bases with appearance of mild pulmonary edema. Small bilateral effusions have developed. - FOLLOW UP Follow Up: Follow-up with Dr. Aguilar on June 17. Get a repeat CT scan of the abdomen and pelvis the day before so that Dr Valdivia can review the results with you during your appointment. - TIME SPENT Time Spent in Discharge (Minutes): 40"
[2017-06-10 12:17] VITALS: BP 137/74
== END 2017-06-10 13:11 | disposition home or self-care (01) | DRG 871 ==
LOC: ED 16:27 → MS2 21:23
PROVIDERS: ADMIT Internal Medicine; ATTEND Hospitalist
DX: A41.9 Sepsis, unspecified organism (principal); K35.3 Acute appendicitis with localized peritonitis; N17.9 Acute kidney failure, unspecified; E87.2 Acidosis; I50.32 Chronic diastolic (congestive) heart failure; I13.0 Hypertensive heart and chronic kidney disease with heart failure and stage 1 through stage 4 chronic kidney disease, or unspecified chronic kidney disease; R65.20 Severe sepsis without septic shock; Z79.01 Long term (current) use of anticoagulants; E11.65 Type 2 diabetes mellitus with hyperglycemia; Z79.4 Long term (current) use of insulin; I48.0 Paroxysmal atrial fibrillation; E78.5 Hyperlipidemia, unspecified; N18.2 Chronic kidney disease, stage 2 (mild); E11.22 Type 2 diabetes mellitus with diabetic chronic kidney disease; Z87.891 Personal history of nicotine dependence; G47.30 Sleep apnea, unspecified
CPT/HCPCS: 36415; 71046; 74176; 74177; 80048; 80053; 81001; 81003; 82009; 83036; 83605; 83690; 83880; 84484; 85025; 85610; 86900; 86901; 87040; 87086; 87275; 87276; 93005; 96361; 96365; 99283; 99284

== ENCOUNTER 2017-06-15 14:38 | Outpatient (CLI) | payer OTHER ==
[2017-06-15] MEDS ORDERED: IOPAMIDOL-300 50 ML VIAL ONE (14:57)
[2017-06-15] MEDS ORDERED: IOPAMIDOL-300 100 ML VIAL ONE (14:57)
--- NOTE | 2017-06-15 18:04 | CT Report ---
EXAM: CT ABDOMEN AND PELVIS EXAM DATE: 06/15/2017 04:33 PM. CLINICAL HISTORY: Periappendiceal abscess. Recheck. COMPARISONS: 06/10/2017. TECHNIQUE: Routine helical CT imaging was performed through the abdomen and pelvis. IV contrast: 100 cc of Isovue-300. Enteric contrast: Yes. Reconstructions: Coronal and sagittal. In accordance with CT protocol optimization, one or more of the following dose reduction techniques w ere utilized for this exam: automated exposure control, adjustment of mA and/or KV based on patient s ize, or use of iterative reconstructive technique. FINDINGS: Lung Bases: Unremarkable. Liver: Normal. No masses. Gallbladder/Bile Ducts: Cholecystectomy. No dilated ducts. Spleen: Normal. Pancreas: Normal. Adrenal Glands: Normal. Kidneys: Nonobstructing calcifications again noted in the lower left kidney, otherwise unremarkable. Peritoneal Cavity/Bowel: Diverticulosis. No free fluid, free air or adenopathy. No masses or acute in flammatory process. . Periappendiceal fat stranding with 2 fluid collections, smaller than prior exam , 2.4 cm and 1.9 cm size. No new fluid collections. Pelvic Organs: The prostate and bladder are unremarkable. Vasculature: No aneurysms or other significant abnormality. Bones: No significant abnormality. Other: Stable fat containing inguinal hernias bilaterally. IMPRESSION: Periappendiceal inflammatory changes with 2 associated fluid collections, smaller than pr ior exam, compatible with resolving abscesses. [facility] The call report notification system was initiated by Dr. Lane Castro at 17:19 hrs on 06/15/17. Attempts to reach Dr. Gee by Dr. Lane Castro were unsuccessful. Report faxed to his office a t 18:02 hrs on 06/15/17. Referring Provider Line: [phone] SITE ID: [id number]
[2017-06-15] MEDS ORDERED: IOPAMIDOL-300 100 ML VIAL IVP ONE (18:52)
[2017-06-15] MEDS ORDERED: IOPAMIDOL-300 50 ML VIAL PO ONE (18:52)
== END 2017-06-15 14:39 | disposition home or self-care (01) ==
LOC: DI 14:38
PROVIDERS: ATTEND Hospitalist
DX: K65.1 Peritoneal abscess (principal)
CPT/HCPCS: 74177; Q9967

== ENCOUNTER 2017-06-19 16:26 | Outpatient (CLI) | payer OTHER | END 2017-06-19 23:59 | disposition critical access hospital (66) | LOC: EMS 16:26 | PROVIDERS: ATTEND Surgery | DX: R55 Syncope and collapse (principal) | CPT/HCPCS: A0425; A0427 ==

== ENCOUNTER 2017-06-19 16:46 | Inpatient (IN) | payer OTHER ==
--- NOTE | 2017-06-19 16:54 | ED Physician Documentation ---
PD HPI ABD PAIN - Stated complaint Stated Complaint: SYNCOPE - History obtained from History obtained from: Patient - History of Present Illness Timing - onset: Today (67-year-old gentleman with history of atrial fibrillation who was admitted recently for appendiceal abscess which was treated with IV antibiotics. Subsequent CAT scan 5 days ago showed improvement and he is still on antibiotics. 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 He feels fine now. There was no associated chest pain or trouble breathing. He still has right-sided back pain which is presumed to be from the appendiceal complications, but no new pains.) Review of Systems Constitutional: denies: Fever, Chills, Fatigue Cardiac: denies: Chest pain / pressure, Palpitations, Pedal edema, Calf pain Respiratory: denies: Dyspnea, Cough PD PAST MEDICAL HISTORY - Past Medical History Cardiovascular: Hypertension, High cholesterol, Atrial fibrillation Respiratory: Shortness of breath, Sleep apnea, CPAP use Neuro: None Endocrine/Autoimmune: Type 2 diabetes GI: Ulcers, Hemorrhoids, Cholelithiasis : Nocturia, Frequency, Kidney stones HEENT: None Psych: None Musculoskeletal: None Derm: None - Past Surgical History General: Cholecystectomy, Colonoscopy (Performed over 10 years ago per patient.) , EGD, Other Ortho: Carpal Tunnel surgery HEENT: Tonsil/Adenoidectomy - Present Medications Home Medications: Ambulatory Orders Medication Instructions Recorded Confirmed Aspirin [Aspirin EC] 81 mg PO DAILY 04/02/16 06/05/17 Gemfibrozil [Lopid] 600 mg PO BIDAC 04/02/16 06/05/17 Lisinopril 40 mg PO DAILY 04/02/16 06/05/17 Metformin HCl [Glucophage] 1,275 mg PO BID 04/02/16 06/05/17 [place]-3/Dha/Epa/Fish Oil [Fish Oil 3,000 mg PO BID 04/02/16 06/05/17 1,000 mg Softgel] Pravastatin Sodium [Pravachol] 40 mg PO DAILY 04/02/16 06/05/17 Spironolactone [Aldactone] 50 mg PO DAILY 04/02/16 06/05/17 Terazosin HCl 20 mg PO DAILY 04/02/16 06/05/17 amLODIPine [Norvasc] 10 mg PO DAILY 04/02/16 06/05/17 Insulin Glargine [Lantus Solostar] 80 unit SUBQ BID 04/03/16 06/05/17 Insulin Regular Human [NovoLIN R] 30 unit SUBQ .QBREAKFAST&DINNER 04/03/1606/05 Multivitamin [Theragran] 1 tab PO DAILY tablet 04/03/16 06/05/17 Warfarin [Coumadin] 5 mg PO QDWARFARIN #30 tablet 04/04/16 06/05/17 Furosemide 20 mg PO DAILY 06/05/17 06/05/17 Levofloxacin [Levaquin] 500 mg PO DAILY #7 tablet 06/10/17 Metronidazole [Flagyl] 500 mg PO TID #21 tablet 06/10/17 - Allergies Allergies/Adverse Reactions: Allergies Allergy/AdvReac Type Severity Reaction Status Date / Time No Known Drug Allergies Allergy Verified 06/04/17 16:36 - Social History Does the pt smoke?: No Smoking Status: Former smoker - Immunizations Immunizations are current?: Yes PD ED PE NORMAL - Vitals Vital signs reviewed: Yes - General General: Alert and oriented X 3, No acute distress - HEENT HEENT: PERRL, EOMI - Neck Neck: Supple, no meningeal sign, No bony TTP - Cardiac Cardiac: Other (Irregularly irregular without murmur) - Respiratory Respiratory: No respiratory distress, Clear bilaterally - Abdomen Abdomen: Other (Soft with mild right lower quadrant and left lower quadrant tenderness, no surgical signs) - Back Back: No CVA TTP - Derm Derm: Normal color, Warm and dry - Extremities Extremities: No deformity, No tenderness to palpate, No edema, No calf tenderness / cord - Neuro Neuro: Alert and oriented X 3, Normal speech - Psych Psych: Normal mood, Normal affect Results - Vitals Vitals: Vital Signs - 24 hr 06/19/17 06/19/17 06/19/17 16:48 17:06 17:24 Temperature 36.4 C L Heart Rate 79 Heart Rate [ 97 Standing] Heart Rate [ 92 Supine] Respiratory 20 Rate Blood Pressure 134/87 H Blood Pressure 107/67 [Standing] Blood Pressure 105/78 [Supine] O2 Saturation 100 Oxygen O2 Source Room air - EKG (time done) 1653 Rate: Rate (enter#) (80) Rhythm: Atrial fibrillation [place]: Normal QRS: Normal Ischemia: Normal ST segments Computer interpretation: Agree with computer - Labs Labs: Laboratory Tests 06/19/17 06/19/17 06/19/17 17:03 17:03 17:03 WBC 4.4 L RBC 4.53 L Hgb 13.0 L Hct 39.7 L MCV 87.7 MCH 28.6 MCHC 32.6 RDW 14.6 Plt Count 247 MPV 7.8 Neut # 2.1 Lymph # 1.7 [place] # 0.5 Eos # 0.1 Baso # 0.0 Absolute Nucleated RBC 0.00 Nucleated RBC % 0.1 PT 83.2 H INR 8.0 H* Sodium 133 L Potassium 4.8 Chloride 98 L Carbon Dioxide 23 Anion Gap 12.0 BUN 42 H Creatinine 2.3 H Estimated GFR (MDRD) 28 L Glucose 295 H Calcium 9.6 Total Bilirubin 0.6 AST 26 ALT 23 Alkaline Phosphatase 60 Troponin I Total Protein 8.0 Albumin 4.0 Globulin 4.0 Albumin/Globulin Ratio 1.0 Lipase 28 06/19/17 17:03 WBC RBC Hgb Hct MCV MCH MCHC RDW Plt Count MPV Neut # Lymph # [place] # Eos # Baso # Absolute Nucleated RBC Nucleated RBC % PT INR Sodium Potassium Chloride Carbon Dioxide Anion Gap BUN Creatinine Estimated GFR (MDRD) Glucose Calcium Total Bilirubin AST ALT Alkaline Phosphatase Troponin I < 0.04 Total Protein Albumin Globulin Albumin/Globulin Ratio Lipase PD MEDICAL DECISION MAKING - ED course ED course: 67-year-old gentleman with recent admission for appendiceal phlegmon, complicated by acute renal failure and supratherapeutic INR returns today with a syncopal episode at a [employer] restaurant, objectively likely due to acute renal failure again. He is a little confused about what medications he is taking which is potentially corroborated by his acute increase in his INR again and I suspect he is probably told still taking his diuretics which may be he should not be? Regardless he needs to come back in the hospital for aggressive IV rehydration and I spoke with Dr. Caro at 5:40 PM. Departure - Departure Disposition: 66 [facility] DC/Xfer Clinical Impression: Phlegmon, Supratherapeutic INR Atrial fibrillation Qualifiers: Atrial fibrillation type: chronic Qualified Code(s): I48.2 - Chronic atrial fibrillation Acute renal failure Qualifiers: Acute renal failure type: unspecified Qualified Code(s): N17.9 - Acute kidney failure, unspecified Condition: Stable
[2017-06-19 17:11] LABS: BASOPHILS % (AUTO) 0.8 %; EOSINOPHILS # (AUTO) 0.1 10^3/uL (0.0-0.7); EOSINOPHILS % (AUTO) 2.4 %; LYMPHOCYTES # (AUTO) 1.7 10^3/uL (1.5-3.5); LYMPHOCYTES % (AUTO) 37.7 %; MEAN CORPUSCULAR HEMOGLOBIN 28.6 pg (27.0-31.0); MEAN CORPUSCULAR HGB CONC 32.6 g/dL (32.0-36.0); MEAN CORPUSCULAR VOLUME 87.7 fL (80.0-94.0); MEAN PLATELET VOLUME 7.8 fL (7.4-11.4); MONOCYTES # (AUTO) 0.5 10^3/uL (0.0-1.0); MONOCYTES % (AUTO) 10.8 %; NEUTROPHILS # (AUTO) 2.1 10^3/uL (1.5-6.6); NEUTROPHILS % (AUTO) 48.3 %; PLT - PLATELET COUNT 247 10^3/uL (130-450); RED BLOOD COUNT 4.53 10^6/uL (4.70-6.10); RED CELL DISTRIBUTION WIDTH 14.6 % (12.0-15.0); WHITE BLOOD COUNT 4.4 x10^3/uL (4.8-10.8)
[2017-06-19 17:12] LABS: PT - PROTHROMBIN TIME 83.2 secs (9.9-12.6)
[2017-06-19 17:18] LABS: BILIRUBIN,TOTAL 0.6 mg/dL (0.2-1.0); CALCIUM 9.6 mg/dL (8.5-10.3); CREATININE 2.3 mg/dL (0.6-1.2)
[2017-06-19] MEDS ORDERED: SODIUM CHLORIDE FLUSH 0.9% 10 ML SYRINGE IVP PRN (18:26)
[2017-06-19] MEDS ORDERED: TEMAZEPAM 15 MG CAPSULE PO PRN (18:26)
[2017-06-19] MEDS ORDERED: HYDROcod/ACETAM 5/325 MG TABLET PO PRN (18:26)
--- NOTE | 2017-06-19 18:30 | HISTORY & PHYSICAL EXAMINATION ---
Chief Complaint - Chief Complaint Chief Complaint: syncope and collapse History of Present Illness - Admitted From Admitted From:: ED - History Obtained From Records Reviewed: yes History obtained from: chart review, patient Exam Limitations: none - History of Present Illness HPI Comment/Other: Cristi Reyna is a 67-year old white male with a past medical history of hypertension, hyperlipidemia, atrial fibrillation, shortness of breath, sleep apnea-uses CPAP, long standing DM type 2, cholelithiasis, ulcers, hemorrhoids, nocturia, urinary frequency, kidney stones, and cognitive delay. He was brought in by ambulance to the ED after a fall [place] [employer] [place]. He claims that he had no warning, but suddenly woke up with everyone standing around him after he had collapsed. He admits to a prior history of syncope and collapse due to hypoglycemia. He was most recently here for a perforated appendicitis with phlegmon. General surgery was consulted and follow this patient throughout his stay. On exam today he claims he "feels fine" and denies dizziness, chest pain, abdominal pain, nausea or vomiting, or shortness of breath. He does admit to ongoing back pain, more so to the mid-right region. Laboratory findings after arriving at the ED were a low WBC count of 4.4, supra-therapeutic INR of 8.0, an elevated creatinine of 2.3, and a negative troponin. He will be admitted to inpatient for correction of INR, and a syncopal work up with telemetry, a carotid US if indicated, and a echocardiogram since the last know echo was in 03/2016. History - Past Medical History Cardiovascular: reports: Congestive heart failure, Hypertension, High cholesterol, Atrial fibrillation, Murmur, Arrhythmia Respiratory: reports: Asthma, Shortness of breath, Sleep apnea, CPAP use Neuro: reports: None, Other (cognitive delay, mild noted on exam.) Endocrine/Autoimmune: reports: Type 2 diabetes GI: reports: Ulcers, Hemorrhoids, Cholelithiasis : reports: Nocturia, Frequency, Kidney stones HEENT: reports: None, Chronic vision loss Psych: reports: None Musculoskeletal: reports: None Derm: reports: None MRSA Hx?: No - Past Surgical History General: reports: Cholecystectomy, Colonoscopy (Performed over 10 years ago per patient.), EGD, Other Ortho: reports: Carpal Tunnel surgery HEENT: reports: Tonsil/Adenoidectomy - Family & Social History Family History: Mother: , Father: Family History Comment/Other: Patient's parents are both , with a known family history of muscular dystrophy. Living arrangement: At home Living Situation: With spouse/s.o. (Patient states his just lies on the couch all day.), With family (youngest son lives in the home.) Social History Notes: The patient is to Nicole since 1970. They have 2 sons, and the youngest son resides with he and his . 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 He and his family first visited the [place], but went back to [facility]. In 2000 after the [employer] went down, he was laid off, so he and his returned to the [place] and have been here ever since. He denies tobacco use, but admits to about 3 years of use, admits to social alcohol use, and denies illicit drug use. He still drives a car. He wishes to be a [employer]. - Substance History Use: Uses substance without health or social issues: NONE Abuse: Recurrent use of substance despite neg consequences: NONE Dependence: Experiences withdrawal or developed tolerances: NONE - POLST Patient has POLST: No POLST Status: Full Code Meds/Allgy - Home Medications Home Medications: Ambulatory Orders Medication Instructions Recorded Confirmed Aspirin [Aspirin EC] 81 mg PO DAILY 04/02/16 06/05/17 Gemfibrozil [Lopid] 600 mg PO BIDAC 04/02/16 06/05/17 Lisinopril 40 mg PO DAILY 04/02/16 06/05/17 Metformin HCl [Glucophage] 1,275 mg PO BID 04/02/16 06/05/17 [place]-3/Dha/Epa/Fish Oil [Fish Oil 3,000 mg PO BID 04/02/16 06/05/17 1,000 mg Softgel] Pravastatin Sodium [Pravachol] 40 mg PO DAILY 04/02/16 06/05/17 Spironolactone [Aldactone] 50 mg PO DAILY 04/02/16 06/05/17 Terazosin HCl 20 mg PO DAILY 04/02/16 06/05/17 amLODIPine [Norvasc] 10 mg PO DAILY 04/02/16 06/05/17 Insulin Glargine [Lantus Solostar] 80 unit SUBQ BID 04/03/16 06/05/17 Insulin Regular Human [NovoLIN R] 30 unit SUBQ .QBREAKFAST&DINNER 04/03/1606/05 Multivitamin [Theragran] 1 tab PO DAILY tablet 04/03/16 06/05/17 Warfarin [Coumadin] 5 mg PO QDWARFARIN #30 tablet 04/04/16 06/05/17 Furosemide 20 mg PO DAILY 06/05/17 06/05/17 Levofloxacin [Levaquin] 500 mg PO DAILY #7 tablet 06/10/17 Metronidazole [Flagyl] 500 mg PO TID #21 tablet 06/10/17 - Allergies Allergies/Adverse Reactions: Allergies Allergy/AdvReac Type Severity Reaction Status Date / Time No Known Drug Allergies Allergy Verified 06/04/17 16:36 Review of Systems - Constitutional Constitutional: reports: Fatigue, Poor appetite - Eyes Eyes: reports: Vision loss, Corrective lenses - Ears, Nose & Throat Ears, Nose & Throat: reports: Hearing loss, Vertigo, Sore throat - Cardiovascular Cariovascular: reports: Irregular heart rate, Lightheadedness - Respiratory Respiratory: reports: Cough - Gastrointestinal Gastrointestinal: reports: Poor appetite - Genitourinary Genitourinary: reports: Dysuria, Frequency, Urgency, Nocturia - Musculoskeletal Musculoskeletal: reports: Back pain, Muscle aches, Limited range of motion, Joint swelling - Integumentary Integumentary: reports: Dryness - Neurological Neurological: reports: General weakness, Focal weakness, Pre-existing deficit - Psychiatric Psychiatric: reports: Other (slow responses to questions.) - Hematologic/Lymphatic Hematologic/Lymphatic: reports: Recurrent infections - All Other Systems All Other Systems: reports: Reviewed and negative Exam - Vital Signs Reviewed Vital Signs: Yes Vital Signs: Vital Signs x48h Temp Pulse Pulse Pulse Resp BP BP 06/19/17 17:24 36.4 C L 06/19/17 17:06 97 92 107/67 06/19/17 16:48 79 20 134/87 H BP Pulse Ox 06/19/17 17:24 06/19/17 17:06 105/78 06/19/17 16:48 100 - Physical Exam General Appearance: positive: No acute distress, Alert Eyes Bilateral: positive: Normal inspection ENT: positive: ENT inspection nml, Pharynx nml, No signs of dehydration Neck: positive: Nml inspection, Thyroid nml, No JVD Respiratory: positive: Chest non-tender, No respiratory distress, Breath sounds nml Cardiovascular: positive: No gallop, Irregularly irregular, Systolic murmur, Decreased pulse(s) Peripheral Pulses: positive: 1+ Abdomen: positive: Non-tender, Guarding, Hepatomegaly, Abnml bowel sounds Back: positive: Nml inspection Skin: positive: No rash, Warm, Dry Extremities: positive: Non-tender, Full ROM, Nml appearance, No pedal edema Neurologic/Psychiatric: positive: Oriented x3, CN's nml (2-12), Motor nml, Sensation nml, Slurred/abnml speech, Depressed mood/affect, Other (baseline mild cognitive delay.) Reflexes: Bicep (R): 1+, Bicep (L): 1+ Conclusion/Plan - Problem List (1) Abnormal coagulation profile Conclusion/Plan: Patient had an elevated INR on admission of 8.0. Patient was discharged on Warfarin and Flagyl/Levofloxacin, so this is the likely cause. Plan: Plan to administer Vitamin K and monitor INR. (2) Syncope and collapse Conclusion/Plan: Patient states that he does not recall feeling dizzy prior to passing out at the [employer] place today, but woke up surrounded by people he did not know to help him. He was brought in by EMS. Plan: Syncope work up including an echocardiogram since last noted 03/2016, carotid ultrasound and orthostatic blood pressures. (3) Atrial fibrillation Conclusion/Plan: Patient has a long standing history of this and is anticoagulated on warfarin, takes no rate control medications such as a beta harvey. Qualifiers: Atrial fibrillation type: chronic Qualified Code(s): I48.2 - Chronic atrial fibrillation (4) Perforated appendicitis Conclusion/Plan: This seems to be stable and was the primary diagnosis of the last admission. Patient denied pain with abdominal palpation during exam, but admits to ongoing right, mid-back pain. Patient was discharged on Flagyl and Levaquin, which will be continued. Plan: Will alert general surgery of admission in AM. Continue antibiotics and monitor for signs of worsening infection. - Lab Results Lab results reviewed: Yes Fish Bones: 06/19/17 17:03 06/19/17 17:03 - Diagnostic Imaging Results Diagnostic Imaging Results: positive: Prelim report reviewed, Final report reviewed - EKG Results EKG Interpreted Independently: Yes EKG Comparison: Unchanged from prior EKG Core Measures - Anticipated LOS I expect patient to be DC'd or transferred within 96 hours.: Yes - DVT/VTE - Prophylaxis VTE/DVT Device ordered at admit?: Yes VTE/DVT Prophylaxis med ordered at admit?: No Not Ordered - Medical Reason: Contraindicated - Stroke - Rehab Assessment Rehab services assessment to be ordered?: Yes - AMI - Statin at Admit Aspirin Prescribed on Admit: No Not Ordered - Medical Reason: Contraindicated
[2017-06-19] MEDS ORDERED: SODIUM CHLORIDE 0.9% 1,000 ML IV SCH ×2 (19:00→20:29)
[2017-06-19] MEDS ORDERED: PHYTONADIONE INJ (ADULT) 10 MG in SODIUM CHLORIDE 0.9% 50 ML IV ONE (20:21)
[2017-06-19] MEDS ORDERED: levoFLOXacin 250 MG TABLET PO SCH ×2 (21:00)
[2017-06-19] MEDS: metroNIDAZOLE 250 MG TABLET PO SCH (21:20)
[2017-06-19] MEDS: INSULIN GLARGINE 300 UNIT/3 ML PEN SUBQ SCH (21:21)
[2017-06-20] MEDS: SODIUM CHLORIDE FLUSH 0.9% 10 ML SYRINGE IVP SCH ×3 (01:20→17:03)
[2017-06-20] MEDS: metroNIDAZOLE 250 MG TABLET PO SCH ×3 (02:57→12:10)
[2017-06-20] MEDS: PANTOPRAZOLE 40 MG TABLET PO SCH (06:04)
[2017-06-20 06:11] LABS: BASOPHILS % (AUTO) 0.9 %; EOSINOPHILS # (AUTO) 0.1 10^3/uL (0.0-0.7); EOSINOPHILS % (AUTO) 2.8 %; LYMPHOCYTES # (AUTO) 1.9 10^3/uL (1.5-3.5); LYMPHOCYTES % (AUTO) 41.5 %; MEAN CORPUSCULAR HEMOGLOBIN 28.3 pg (27.0-31.0); MEAN CORPUSCULAR HGB CONC 32.5 g/dL (32.0-36.0); MEAN CORPUSCULAR VOLUME 87.1 fL (80.0-94.0); MONOCYTES # (AUTO) 0.6 10^3/uL (0.0-1.0); NEUTROPHILS % (AUTO) 42.8 %; PLT - PLATELET COUNT 207 10^3/uL (130-450); RED BLOOD COUNT 4.26 10^6/uL (4.70-6.10); RED CELL DISTRIBUTION WIDTH 15.1 % (12.0-15.0); WHITE BLOOD COUNT 4.6 x10^3/uL (4.8-10.8)
[2017-06-20 06:14] LABS: INR 2.3 (0.8-1.2); PT - PROTHROMBIN TIME 25.6 secs (9.9-12.6)
[2017-06-20 06:30] LABS: ALBUMIN 3.5 g/dL (3.2-5.5); ALKALINE PHOSPHATASE 50 IU/L (42-121); ALT ALANINE AMINOTRANSFERASE 20 IU/L (10-60); AST ASPARTATE AMINOTRANSFERASE 23 IU/L (10-42); BILIRUBIN,TOTAL 0.8 mg/dL (0.2-1.0); BUN - BLOOD UREA NITROGEN 36 mg/dL (6-20); CALCIUM 9.1 mg/dL (8.5-10.3); CARBON DIOXIDE - CO2 22 mmol/L (21-32); CHLORIDE 105 mmol/L (101-111); CREATININE 1.6 mg/dL (0.6-1.2); GFR - MDRD 43 (>89); GLUCOSE 115 mg/dL (70-100); SODIUM 135 mmol/L (135-145)
[2017-06-20 06:32] LABS: CRP - C-REACTIVE PROTEIN < 1.0 mg/dL (0-1.0)
[2017-06-20 08:09] LABS: HB2 TOTAL 13.3 g/dL; HEMOGLOBIN A1C 0.93 g/dL; HEMOGLOBIN A1C % 8.5 % (4.6-6.2)
[2017-06-20] MEDS: INSULIN GLARGINE 300 UNIT/3 ML PEN SUBQ SCH (08:37)
[2017-06-20] MEDS: INSULIN ASPART 300 UNIT/3 ML PEN SUBQ SCH ×3 (08:38→20:58)
[2017-06-20] MEDS: POLYETHYLENE GLYCOL 3350 17 GM PACKET PO SCH (08:40)
--- NOTE | 2017-06-20 11:52 | PROVIDER PROGRESS NOTE ---
Subjective - Prog Note Date Prog Note Date: 06/20/17 Prog Note Time: 11:52 - Subjective Pt reports feeling: Improved Subjective: Cristi has no complaints and states that he slept well last night. He denies SOB, chest pain, N/V or a new cough. Current Medications - Current Medications Current Medications: Active Medications: Acetaminophen/Hydrocodone Bitart ([place] 5/325) 1 tab PO Q4HR PRN PRN Reason: Pain 5 to 7 Amlodipine Besylate (Norvasc) 10 mg PO DAILY [facility] Last Admin: 06/20/17 13:29 Dose: 10 mg Aspirin (Ecotrin) 81 mg PO DAILY [facility] Last Admin: 06/20/17 13:29 Dose: 81 mg Furosemide (Lasix) 20 mg PO DAILY [facility] Last Admin: 06/20/17 13:29 Dose: 20 mg Gemfibrozil (Lopid) 600 mg PO BIDAC [facility] Insulin Aspart (Novolog) 20 unit SUBQ TIDWM [facility] Last Admin: 06/20/17 12:09 Dose: 20 unit Insulin Glargine (Lantus Solostar) 80 unit SUBQ BID [facility] Last Admin: 06/20/17 08:37 Dose: 80 unit Mdspa-0-Uppw Ethyl Esters (Lovaza) 1 gm PO BID [facility] Last Admin: 06/20/17 13:30 Dose: 1 gm Pantoprazole Sodium (Protonix) 40 mg PO QDAC [facility] Last Admin: 06/20/17 06:04 Dose: 40 mg Polyethylene Glycol (Miralax) 17 gm PO DAILY [facility] Last Admin: 06/20/17 08:40 Dose: Not Given Pravastatin Sodium (Pravachol) 40 mg PO QPM [facility] Sodium Chloride (Normal Saline Flush 0.9%) 10 ml IVP PRN PRN PRN Reason: NEEDED PER PROVIDER ORDERS Sodium Chloride (Normal Saline Flush 0.9%) 10 ml IVP 0100,0900,1700 [facility] Last Admin: 06/20/17 08:41 Dose: Not Given Spironolactone (Aldactone) 50 mg PO DAILY [facility] Last Admin: 06/20/17 13:30 Dose: 50 mg Temazepam (Restoril) 15 mg PO QPM PRN PRN Reason: Insomnia Terazosin HCl (Hytrin) 20 mg PO DAILY [facility] Last Admin: 06/20/17 13:29 Dose: 20 mg Warfarin Sodium (Coumadin) 5 mg PO QDWARFARIN [facility] Last Admin: 06/20/17 13:30 Dose: 5 mg HOME medications: Aspirin [Aspirin EC] 81 mg PO DAILY 04/02/16 Gemfibrozil [Lopid] 600 mg PO BIDAC 04/02/16 Lisinopril 40 mg PO DAILY 04/02/16 Metformin HCl [Glucophage] 1,275 mg PO BID 04/02/16 [place]-3/Dha/Epa/Fish Oil [Fish Oil 1,000 mg Softgel] 1,000 mg PO BID 04/02/16 Pravastatin Sodium [Pravachol] 40 mg PO DAILY 04/02/16 Spironolactone [Aldactone] 50 mg PO DAILY 04/02/16 Terazosin HCl 20 mg PO DAILY 04/02/16 amLODIPine [Norvasc] 10 mg PO DAILY 04/02/16 Insulin Glargine [Lantus Solostar] 80 unit SUBQ BID 04/03/16 Insulin Regular Human [NovoLIN R] 30 unit SUBQ .QBREAKFAST&DINNER 04/03/16 Furosemide 20 mg PO DAILY 06/05/17 Objective - Vital Signs/Intake & Output Reviewed Vital Signs: Yes Vital Signs: Vital Signs x48h Temp Pulse Resp BP Pulse Ox 06/20/17 11:37 37.1 C 52 L 17 95/60 94 06/20/17 08:00 37.2 C 66 18 114/67 97 06/20/17 04:12 36.8 C 74 16 125/69 98 Intake & Output: Intake & Output 06/17/17 06/18/17 06/19/17 06/20/17 23:59 23:59 23:59 23:59 Intake Total 291 1460 Balance 291 1460 - Objective General Appearance: positive: No acute distress, Alert Eyes Bilateral: positive: Normal inspection, PERRL ENT: positive: ENT inspection nml, Pharynx nml, No signs of dehydration Neck: positive: Nml inspection, Thyroid nml, Trachea midline Respiratory: positive: Chest non-tender, No respiratory distress, Breath sounds nml Cardiovascular: positive: No gallop, Irregularly irregular, Systolic murmur, Decreased pulse(s) Peripheral Pulses: 1+ Radial (R), 1+ Radial (L) Abdomen: positive: Non-tender, Nml bowel sounds, Guarding (very mild, right upper quadrant) Back: positive: Nml inspection Skin: positive: No rash, Warm, Dry Extremities: positive: Non-tender, Full ROM, No pedal edema Neurologic/Psychiatric: positive: Oriented x3, CN's nml (2-12), Motor nml, Weakness, Depressed mood/affect Reflexes: Bicep (R): 2+, Bicep (L): 2+ - Lab Results Fish Bones: 06/20/17 05:52 06/20/17 05:52 Other Labs: Lab Results x24hrs 06/20/17 06/20/17 06/20/17 Range/Units 05:52 05:52 05:52 WBC (4.8-10.8) x10^3/uL RBC (4.70-6.10) 10^6/uL Hgb (14.0-18.0) g/dL Hct (42.0-52.0) % MCV (80.0-94.0) fL MCH (27.0-31.0) pg MCHC (32.0-36.0) g/dL RDW (12.0-15.0) % Plt Count (130-450) 10^3/uL MPV (7.4-11.4) fL Neut # (1.5-6.6) 10^3/uL Lymph # (1.5-3.5) 10^3/uL [place] # (0.0-1.0) 10^3/uL Eos # (0.0-0.7) 10^3/uL Baso # (0.0-0.1) 10^3/uL Absolute Nucleated RBC x10^3/uL Nucleated RBC % /100WBC ESR (0-20) mm/Hr PT (9.9-12.6) secs INR (0.8-1.2) Sodium 135 (135-145) mmol/L Potassium 4.1 (3.5-5.0) mmol/L Chloride 105 (101-111) mmol/L Carbon Dioxide 22 (21-32) mmol/L Anion Gap 8.0 (6-13) BUN 36 H (6-20) mg/dL Creatinine 1.6 H (0.6-1.2) mg/dL Estimated GFR (MDRD) 43 L (>89) Glucose 115 H (70-100) mg/dL Glycated Hemoglobin (4.6-6.2) % Estim Average Glucose (70-100) Calcium 9.1 (8.5-10.3) mg/dL Total Bilirubin 0.8 (0.2-1.0) mg/dL AST 23 (10-42) IU/L ALT 20 (10-60) IU/L Alkaline Phosphatase 50 (42-121) IU/L Troponin I < 0.04 (<0.49) ng/mL C-Reactive Protein < 1.0 (0-1.0) mg/dL B-Natriuretic Peptide 55 (5-100) pg/mL Total Protein 7.0 (6.7-8.2) g/dL Albumin 3.5 (3.2-5.5) g/dL Globulin 3.5 (2.1-4.2) g/dL Albumin/Globulin Ratio 1.0 (1.0-2.2) Triglycerides 262 H ( - 149) mg/dL 06/20/17 06/20/17 06/20/17 Range/Units 05:52 05:52 05:52 WBC 4.6 L (4.8-10.8) x10^3/uL RBC 4.26 L (4.70-6.10) 10^6/uL Hgb 12.0 L (14.0-18.0) g/dL Hct 37.1 L (42.0-52.0) % MCV 87.1 (80.0-94.0) fL MCH 28.3 (27.0-31.0) pg MCHC 32.5 (32.0-36.0) g/dL RDW 15.1 H (12.0-15.0) % Plt Count 207 (130-450) 10^3/uL MPV 8.0 (7.4-11.4) fL Neut # 2.0 (1.5-6.6) 10^3/uL Lymph # 1.9 (1.5-3.5) 10^3/uL [place] # 0.6 (0.0-1.0) 10^3/uL Eos # 0.1 (0.0-0.7) 10^3/uL Baso # 0.0 (0.0-0.1) 10^3/uL Absolute Nucleated RBC 0.00 x10^3/uL Nucleated RBC % 0.1 /100WBC ESR 34 H (0-20) mm/Hr PT 25.6 H (9.9-12.6) secs INR 2.3 H (0.8-1.2) Sodium (135-145) mmol/L Potassium (3.5-5.0) mmol/L Chloride (101-111) mmol/L Carbon Dioxide (21-32) mmol/L Anion Gap (6-13) BUN (6-20) mg/dL Creatinine (0.6-1.2) mg/dL Estimated GFR (MDRD) (>89) Glucose (70-100) mg/dL Glycated Hemoglobin (4.6-6.2) % Estim Average Glucose (70-100) Calcium (8.5-10.3) mg/dL Total Bilirubin (0.2-1.0) mg/dL AST (10-42) IU/L ALT (10-60) IU/L Alkaline Phosphatase (42-121) IU/L Troponin I (<0.49) ng/mL C-Reactive Protein (0-1.0) mg/dL B-Natriuretic Peptide (5-100) pg/mL Total Protein (6.7-8.2) g/dL Albumin (3.2-5.5) g/dL Globulin (2.1-4.2) g/dL Albumin/Globulin Ratio (1.0-2.2) Triglycerides ( - 149) mg/dL 06/20/17 Range/Units 05:52 WBC (4.8-10.8) x10^3/uL RBC (4.70-6.10) 10^6/uL Hgb (14.0-18.0) g/dL Hct (42.0-52.0) % MCV (80.0-94.0) fL MCH (27.0-31.0) pg MCHC (32.0-36.0) g/dL RDW (12.0-15.0) % Plt Count (130-450) 10^3/uL MPV (7.4-11.4) fL Neut # (1.5-6.6) 10^3/uL Lymph # (1.5-3.5) 10^3/uL [place] # (0.0-1.0) 10^3/uL Eos # (0.0-0.7) 10^3/uL Baso # (0.0-0.1) 10^3/uL Absolute Nucleated RBC x10^3/uL Nucleated RBC % /100WBC ESR (0-20) mm/Hr PT (9.9-12.6) secs INR (0.8-1.2) Sodium (135-145) mmol/L Potassium (3.5-5.0) mmol/L Chloride (101-111) mmol/L Carbon Dioxide (21-32) mmol/L Anion Gap (6-13) BUN (6-20) mg/dL Creatinine (0.6-1.2) mg/dL Estimated GFR (MDRD) (>89) Glucose (70-100) mg/dL Glycated Hemoglobin 8.5 H (4.6-6.2) % Estim Average Glucose 197 H (70-100) Calcium (8.5-10.3) mg/dL Total Bilirubin (0.2-1.0) mg/dL AST (10-42) IU/L ALT (10-60) IU/L Alkaline Phosphatase (42-121) IU/L Troponin I (<0.49) ng/mL C-Reactive Protein (0-1.0) mg/dL B-Natriuretic Peptide (5-100) pg/mL Total Protein (6.7-8.2) g/dL Albumin (3.2-5.5) g/dL Globulin (2.1-4.2) g/dL Albumin/Globulin Ratio (1.0-2.2) Triglycerides ( - 149) mg/dL - Diagnostic Imaging Diagnostic Imaging Results: positive: Final report reviewed Diagnostic Imaging Comments: EXAM: CT ABDOMEN AND PELVIS EXAM DATE: 06/15/2017 04:33 PM. CLINICAL HISTORY: Periappendiceal abscess. Recheck. COMPARISONS: 06/10/2017. TECHNIQUE: Routine helical CT imaging was performed through the abdomen and pelvis. IV contrast: 100 cc of Isovue-300. Enteric contrast: Yes. Reconstructions: Coronal and sagittal. In accordance with CT protocol optimization, one or more of the following dose reduction techniques were utilized for this exam: automated exposure control, adjustment of mA and/or KV based on patient size, or use of iterative reconstructive technique. FINDINGS: Lung Bases: Unremarkable. Liver: Normal. No masses. Gallbladder/Bile Ducts: Cholecystectomy. No dilated ducts. Spleen: Normal. Pancreas: Normal. Adrenal Glands: Normal. Kidneys: Nonobstructing calcifications again noted in the lower left kidney, otherwise unremarkable. Peritoneal Cavity/Bowel: Diverticulosis. No free fluid, free air or adenopathy. No masses or acute inflammatory process. . Periappendiceal fat stranding with 2 fluid collections, smaller than prior exam, 2.4 cm and 1.9 cm size. No new fluid collections. Pelvic Organs: The prostate and bladder are unremarkable. Vasculature: No aneurysms or other significant abnormality. Bones: No significant abnormality. Other: Stable fat containing inguinal hernias bilaterally. IMPRESSION: Periappendiceal inflammatory changes with 2 associated fluid collections, smaller than prior exam, compatible with resolving abscesses. Assessment/Plan - Problem List (1) Abnormal coagulation profile Impression: Patient had an elevated INR on admission of 8.0. Patient was discharged on Warfarin and Flagyl/Levofloxacin, so this is the likely cause. Patient's INR is now normalized, to 2.2. Flagyl/Levofloxacin are discontinued due to the appropriate coarse of treatment as determined by chart review and latest imaging that was completed on 06/15/17. Plan: Resume warfarin and monitor labs including INR. (2) Syncope and collapse Impression: Patient states that he does not recall feeling dizzy prior to passing out at the [employer], but woke up surrounded by people he did not know to help him. He was brought in by EMS. Patient has had no further signs of syncope and denies symptoms. An echocardiogram was completed today that shows an overall systolic function that is normal and an EF of 70-75%, severe increase in the LA index, severe RA enlargement, and a decreased RVSP at rest of 25mmHG, and prior studies showed 42mmHg. Orthostatic blood pressure readings are pending, and a carotid doppler study will be completed in the AM. A full explanation as to the cause of this syncopal episode is still unknown, but patient states that in the past, his syncope was related to low blood sugars. He states that he did not eat before going to the [employer], so he believes low blood sugars to be the cause. Plan: Continuing syncope work up, while monitoring labs, and vital signs. (3) Atrial fibrillation Impression: Patient has a known history of this and is rate controlled on a beta harvey. Plan: Discontinue telemetry and continue home meds. Qualifiers: Atrial fibrillation type: chronic Qualified Code(s): I48.2 - Chronic atrial fibrillation (4) Perforated appendicitis Impression: This seems to be stable and was the primary diagnosis of the last admission. Patient denied pain with abdominal palpation during exam, but admits to ongoing right, mid-back pain. Patient was discharged on Flagyl and Levaquin, which the patient has finished his coarse, so these were not continued. After reviewing the latest follow up CT scan, this condition is likely resolved. It is unclear whether he attended his follow up with our general surgery department. Plan: Monitor for signs of worsening infection.
[2017-06-20] MEDS: amLODIPine 5 MG TABLET PO SCH (13:29)
[2017-06-20] MEDS: FUROSEMIDE 20 MG TABLET PO SCH (13:29)
[2017-06-20] MEDS: ASPIRIN EC 81 MG TABLET PO SCH (13:29)
[2017-06-20] MEDS: TERAZOSIN 5 MG CAPSULE PO SCH (13:29)
[2017-06-20] MEDS: SPIRONOLACTONE 25 MG TABLET PO SCH (13:30)
[2017-06-20] MEDS: OMEGA-3 ACID ETHYL ESTERS 1 GM CAPSULE PO SCH ×2 (13:30→20:57)
[2017-06-20] MEDS ORDERED: WARFARIN 5 MG TABLET PO SCH (14:00)
[2017-06-20] MEDS: GEMFIBROZIL 600 MG TABLET PO SCH (17:03)
[2017-06-20] MEDS ORDERED: INSULIN GLARGINE 300 UNIT/3 ML PEN SUBQ SCH (21:00)
[2017-06-20] MEDS ORDERED: PRAVASTATIN 40 MG TABLET PO SCH (21:00)
--- NOTE | 2017-06-21 00:20 | Ultrasound Preliminary Report ---
Exam: US CAROTID DOPPLER COMPLETE IMPRESSION: No hemodynamically significant stenoses. Validated velocity measurements with angiographic measurements and velocity criteria are extrapolated from diameter data as defined by the Society of Radiologists in Ultrasound Consensus Conference Radi ology 2003; 229;340-346. [facility] SITE ID: [id number]
--- NOTE | 2017-06-21 00:38 | Ultrasound Report ---
EXAM: CAROTID DOPPLER ULTRASOUND EXAM DATE: 06/20/2017 11:03 PM. CLINICAL HISTORY: Syncope. COMPARISON: None. TECHNIQUE: Real-time sonographic vascular imaging was performed by the sap data analyst through the caroti d arterial system with a linear transducer utilizing color-flow, Doppler flow and spectral analysis. Multiple health and safety representative static images were saved for review. FINDINGS: Right: RCCA Prox: PSV 64.4 cm/sec. RCCA Dist: PSV 32.5 cm/sec, EDV 8.2 cm/sec. RECA: PSV 73.8 cm/sec. R Bulb: PSV 29.9 cm/sec, EDV 10.1 cm/sec, ICA/CCA ratio 0.9. TRINIDAD Prox: PSV 35.0 cm/sec, EDV 11.7 cm/sec, ICA/CCA ratio 1.1. TRINIDAD Mid: PSV 42.0 cm/sec, EDV 14.0 cm/sec, ICA/CCA ratio 1.3. [place]AD Dist: PSV 41.5 cm/sec, EDV 17.7 cm/sec, ICA/CCA ratio 1.3. RVA: PSV 50.9 cm/sec. RVA flow direction: Antegrade. Left: LCCA Prox: PSV 74.2 cm/sec. LCCA Dist: PSV 45.7 cm/sec, EDV 7.5 cm/sec. LECA: PSV 99.4 cm/sec. L Bulb: PSV 28.9 cm/sec, EDV 6.1 cm/sec, ICA/CCA ratio 0.8. LICA Prox: PSV 35.5 cm/sec, EDV 12.1 cm/sec, ICA/CCA ratio 0.8. LICA Mid: PSV 48.5 cm/sec, EDV 16.8 cm/sec, ICA/CCA ratio 1.1. LICA Dist: PSV 35.0 cm/sec, EDV 21.5 cm/sec, ICA/CCA ratio 0.8. LVA: PSV 74.5 cm/sec. LVA flow direction: Antegrade. Other: Bilateral plaque, left greater than right. Tortuous internal carotid arteries. IMPRESSION: No hemodynamically significant stenoses. Validated velocity measurements with angiographic measurements and velocity criteria are extrapolated from diameter data as defined by the Society of Radiologists in Ultrasound Consensus Conference Radi ology 2003; 229;340-346. [facility] Referring Provider Line: [phone] SITE ID: [id number]
[2017-06-21 06:02] LABS: BASOPHILS % (AUTO) 0.7 %; EOSINOPHILS # (AUTO) 0.2 10^3/uL (0.0-0.7); EOSINOPHILS % (AUTO) 3.5 %; HGB - HEMOGLOBIN 12.2 g/dL (14.0-18.0); LYMPHOCYTES # (AUTO) 2.3 10^3/uL (1.5-3.5); LYMPHOCYTES % (AUTO) 41.9 %; MEAN CORPUSCULAR HEMOGLOBIN 28.8 pg (27.0-31.0); MEAN CORPUSCULAR HGB CONC 33.1 g/dL (32.0-36.0); MEAN CORPUSCULAR VOLUME 86.9 fL (80.0-94.0); MEAN PLATELET VOLUME 8.2 fL (7.4-11.4); MONOCYTES # (AUTO) 0.6 10^3/uL (0.0-1.0); MONOCYTES % (AUTO) 10.6 %; NEUTROPHILS # (AUTO) 2.4 10^3/uL (1.5-6.6); NEUTROPHILS % (AUTO) 43.3 %; PLT - PLATELET COUNT 187 10^3/uL (130-450); RED BLOOD COUNT 4.23 10^6/uL (4.70-6.10); RED CELL DISTRIBUTION WIDTH 14.5 % (12.0-15.0); WHITE BLOOD COUNT 5.6 x10^3/uL (4.8-10.8)
[2017-06-21 06:18] LABS: ALBUMIN 3.3 g/dL (3.2-5.5); ALBUMIN/GLOBULIN RATIO 0.9 (1.0-2.2); ALKALINE PHOSPHATASE 47 IU/L (42-121); ALT ALANINE AMINOTRANSFERASE 17 IU/L (10-60); AST ASPARTATE AMINOTRANSFERASE 21 IU/L (10-42); BILIRUBIN,TOTAL 0.6 mg/dL (0.2-1.0); BUN - BLOOD UREA NITROGEN 33 mg/dL (6-20); CALCIUM 9.2 mg/dL (8.5-10.3); CARBON DIOXIDE - CO2 22 mmol/L (21-32); CHLORIDE 106 mmol/L (101-111); CREATININE 1.5 mg/dL (0.6-1.2); GFR - MDRD 46 (>89); GLUCOSE 68 mg/dL (70-100); SODIUM 135 mmol/L (135-145)
[2017-06-21 06:20] LABS: CRP - C-REACTIVE PROTEIN < 1.0 mg/dL (0-1.0)
[2017-06-21] MEDS: SODIUM CHLORIDE FLUSH 0.9% 10 ML SYRINGE IVP SCH ×2 (06:21→08:45)
[2017-06-21] MEDS: GEMFIBROZIL 600 MG TABLET PO SCH (06:21)
[2017-06-21] MEDS: PANTOPRAZOLE 40 MG TABLET PO SCH (06:21)
[2017-06-21 07:42] VITALS: BP 120/67
[2017-06-21] MEDS ORDERED: INSULIN GLARGINE 300 UNIT/3 ML PEN SUBQ SCH (08:26)
--- NOTE | 2017-06-21 08:29 | Discharge Plan ---
Discharge Plan Disposition: Home, Self Care Condition: Good Prescriptions: Apixaban [Eliquis] 5 mg PO BID #60 tablet Insulin Glargine [Lantus Solostar] 30 unit SUBQ BID #1 pen Diet: Diabetic Activity Restrictions: No Restrictions Shower Restrictions: No Driving Restrictions: No Weight Bearing: Full Weight Instruction Topics: Activated Coagulation Time, Activated Partial Thromboplastin Clotting Time, Prothrombin Time Additional Instructions or Follow Up instructions: You were admitted after you passed out at the [facility]. It is thought that you may have had low blood sugars at the time of the fall. Your carotid ultrasound studies shows no blockages or stenosis, so this could not be a cause of your passing out. Your INR was too high at 8. This may have been from the antibiotics. Luckily, there has been no evidence of bleeding. You should STOP your coumadin and start a new blood thinner called Apixaban or Eliquis. You should continue to follow Dr. Aguilar' recommendations. You can keep taking all of the antibiotics at home. Your home insulin dose was reduced due to you having lower than normal blood sugars. Please see your PCP within a week. No Smoking: If you smoke, Please STOP! Call for help. Follow-up with: MARIA ISABEL MARC MD [Primary Care Provider] -
[2017-06-21] MEDS: TERAZOSIN 5 MG CAPSULE PO SCH (08:42)
[2017-06-21] MEDS: OMEGA-3 ACID ETHYL ESTERS 1 GM CAPSULE PO SCH (08:42)
[2017-06-21] MEDS: amLODIPine 5 MG TABLET PO SCH (08:42)
[2017-06-21] MEDS: ASPIRIN EC 81 MG TABLET PO SCH (08:42)
[2017-06-21] MEDS: FUROSEMIDE 20 MG TABLET PO SCH (08:42)
[2017-06-21] MEDS: SPIRONOLACTONE 25 MG TABLET PO SCH (08:43)
[2017-06-21] MEDS: POLYETHYLENE GLYCOL 3350 17 GM PACKET PO SCH (08:43)
[2017-06-21] MEDS: INSULIN ASPART 300 UNIT/3 ML PEN SUBQ SCH (08:45)
--- NOTE | 2017-06-21 08:47 | DISCHARGE SUMMARY ---
Discharge Summary Admit Date: 06/19/17 Discharge Date: 06/21/17 Discharging Provider: BECKA Jiang Primary Care Provider: Jennie Gee Code Status: Attempt Resuscitation Condition at Discharge: Good Discharge Disposition: 01 Home, Self Care - DIAGNOSES Admission Diagnoses: Abnormal coagulation profile (R79.1) Syncope and collapse (R55) Unspecified atrial fibrillation (I48.91) Discharge Diagnoses with Status of Each Condition: Supratherapeutic INR (R79.1) resolved, started on a new anticoagulant. Syncope (R55) resolved. Atrial fibrillation (I48.91) chronic, stable. Perforated appendicitis (K35.2) stable, continue antibiotics. - HPI History of Present Illness: Cristi Reyna is a 67-year old white male with a past medical history of hypertension, hyperlipidemia, atrial fibrillation, shortness of breath, sleep apnea-uses CPAP, long standing DM type 2, cholelithiasis, ulcers, hemorrhoids, nocturia, urinary frequency, kidney stones, and cognitive delay. He was brought in by ambulance to the ED after a fall [place] a local [place]. He claims that he had no warning, but suddenly woke up with everyone standing around him after he had collapsed. He admits to a prior history of syncope and collapse due to hypoglycemia. He was most recently here for a perforated appendicitis with phlegmon. General surgery was consulted and follow this patient throughout his stay. On exam today he claims he "feels fine" and denies dizziness, chest pain, abdominal pain, nausea or vomiting, or shortness of breath. He does admit to ongoing back pain, more so to the mid-right region. Laboratory findings after arriving at the ED were a low WBC count of 4.4, supra-therapeutic INR of 8.0, an elevated creatinine of 2.3, and a negative troponin. He will be admitted to inpatient for correction of INR, and a syncopal work up with telemetry, a carotid US if indicated, and a echocardiogram since the last know echo was in 03/2016. - HOSPITAL COURSE Hospital Course: Patient was worked up for his syncopal work-up that was negative. I suspect that he became weak due to hypoglycemia based on the story that he tells about not eating yet, then at lunch picked up a pizza and passed out there. He was discharged home in stable condition and prescribed Eliquis, as this is indicated given his multiple supra-therapeutic events. He was to follow up again with general surgery as previously planned and stay on antibiotics. - ALLERGIES Allergies/Adverse Reactions: Allergies Allergy/AdvReac Type Severity Reaction Status Date / Time No Known Drug Allergies Allergy Verified 06/04/17 16:36 - MEDICATIONS Home Medications: Ambulatory Orders Medication Instructions Recorded Confirmed Aspirin [Aspirin EC] 81 mg PO DAILY 04/02/16 06/20/17 Gemfibrozil [Lopid] 600 mg PO BIDAC 04/02/16 06/20/17 Lisinopril 40 mg PO DAILY 04/02/16 06/20/17 Metformin HCl [Glucophage] 1,275 mg PO BID 04/02/16 06/20/17 [place]-3/Dha/Epa/Fish Oil [Fish Oil 1,000 mg PO BID 04/02/16 06/20/17 1,000 mg Softgel] Pravastatin Sodium [Pravachol] 40 mg PO DAILY 04/02/16 06/20/17 Spironolactone [Aldactone] 50 mg PO DAILY 04/02/16 06/20/17 Terazosin HCl 20 mg PO DAILY 04/02/16 06/20/17 amLODIPine [Norvasc] 10 mg PO DAILY 04/02/16 06/20/17 Multivitamin [Theragran] 1 tab PO DAILY tablet 04/03/16 06/20/17 Furosemide 20 mg PO DAILY 06/05/17 06/20/17 Levofloxacin [Levaquin] 500 mg PO DAILY #7 tablet 06/10/17 06/20/17 Metronidazole [Flagyl] 500 mg PO TID #21 tablet 06/10/17 06/20/17 Apixaban [Eliquis] 5 mg PO BID #60 tablet 06/21/17 Apixaban [Eliquis] 5 mg PO BID #60 tablet 06/21/17 Insulin Glargine [Lantus Solostar] 30 unit SUBQ BID #1 pen 06/21/17 - PHYSICAL EXAM AT DISCHARGE General Appearance: positive: No acute distress, Alert Eyes Bilateral: positive: Normal inspection ENT: positive: ENT inspection nml, Pharynx nml, No signs of dehydration Neck: positive: Nml inspection, Thyroid nml, No JVD Respiratory: positive: Chest non-tender, No respiratory distress, Breath sounds nml Cardiovascular: positive: No gallop, Irregularly irregular, Systolic murmur, Decreased pulse(s) Peripheral Pulses: positive: 1+ Abdomen: positive: Non-tender, No organomegaly, Nml bowel sounds, No distention Back: positive: Nml inspection Skin: positive: No rash, Warm, Dry, Pallor Extremities: positive: Non-tender, Pedal edema Neurologic/Psychiatric: positive: CN's nml (2-12), Weakness, Slurred/abnml speech, Depressed mood/affect, Other (baseline, slow to respond.) Reflexes: Bicep (R): 2+, Bicep (L): 2+ - LABS Result Diagrams: 06/21/17 05:28 06/21/17 05:28 - DIAGNOSTIC IMAGING Diagnostic Imaging Results: Final report reviewed Diagnostic Imaging Results Comments: EXAM: CAROTID DOPPLER ULTRASOUND EXAM DATE: 06/20/2017 11:03 PM. CLINICAL HISTORY: Syncope. COMPARISON: None. TECHNIQUE: Real-time sonographic vascular imaging was performed by the insurance examining clerk through the carotid arterial system with a linear transducer utilizing color-flow, Doppler flow and spectral analysis. Multiple patient service representative static images were saved for review. FINDINGS: Right: RCCA Prox: PSV 64.4 cm/sec. RCCA Dist: PSV 32.5 cm/sec, EDV 8.2 cm/sec. RECA: PSV 73.8 cm/sec. R Bulb: PSV 29.9 cm/sec, EDV 10.1 cm/sec, ICA/CCA ratio 0.9. TRINIDAD Prox: PSV 35.0 cm/sec, EDV 11.7 cm/sec, ICA/CCA ratio 1.1. [place]ID[place] Mid: PSV 42.0 cm/sec, EDV 14.0 cm/sec, ICA/CCA ratio 1.3. [place] Dist: PSV 41.5 cm/sec, EDV 17.7 cm/sec, ICA/CCA ratio 1.3. RVA: PSV 50.9 cm/sec. RVA flow direction: Antegrade. Left: LCCA Prox: PSV 74.2 cm/sec. LCCA Dist: PSV 45.7 cm/sec, EDV 7.5 cm/sec. LECA: PSV 99.4 cm/sec. L Bulb: PSV 28.9 cm/sec, EDV 6.1 cm/sec, ICA/CCA ratio 0.8. LICA Prox: PSV 35.5 cm/sec, EDV 12.1 cm/sec, ICA/CCA ratio 0.8. LICA Mid: PSV 48.5 cm/sec, EDV 16.8 cm/sec, ICA/CCA ratio 1.1. LICA Dist: PSV 35.0 cm/sec, EDV 21.5 cm/sec, ICA/CCA ratio 0.8. LVA: PSV 74.5 cm/sec. LVA flow direction: Antegrade. Other: Bilateral plaque, left greater than right. Tortuous internal carotid arteries. IMPRESSION: No hemodynamically significant stenoses. - FOLLOW UP Follow Up: Disposition: Home, Self Care Condition: Good Prescriptions: Apixaban [Eliquis] 5 mg PO BID #60 tablet Insulin Glargine [Lantus Solostar] 30 unit SUBQ BID #1 pen Diet: Diabetic Activity Restrictions: No Restrictions Shower Restrictions: No Driving Restrictions: No Weight Bearing: Full Weight Instruction Topics: Activated Coagulation Time, Activated Partial Thromboplastin Clotting Time, Prothrombin Time Additional Instructions or Follow Up instructions: You were admitted after you passed out at the [facility]. It is thought that you may have had low blood sugars at the time of the fall. Your carotid ultrasound studies shows no blockages or stenosis, so this could not be a cause of your passing out. Your INR was too high at 8. This may have been from the antibiotics. Luckily, there has been no evidence of bleeding. You should STOP your coumadin and start a new blood thinner called Apixaban or Eliquis. You should continue to follow Dr. Aguilar' recommendations. You can keep taking all of the antibiotics at home. Your home insulin dose was reduced due to you having lower than normal blood sugars. Please see your PCP within a week. - TIME SPENT Time Spent in Discharge (Minutes): 45
[2017-06-21 09:44] LABS: INR 1.5 (0.8-1.2); PT - PROTHROMBIN TIME 16.4 secs (9.9-12.6)
== END 2017-06-21 12:07 | disposition home or self-care (01) | DRG 947 ==
LOC: EDUNIT# → ED 16:46 → MS2 18:26
PROVIDERS: ADMIT Nurse Practitioner; ATTEND Nurse Practitioner
DX: R79.1 Abnormal coagulation profile (principal); K35.2 Acute appendicitis with generalized peritonitis; R55 Syncope and collapse; I10 Essential (primary) hypertension; E78.5 Hyperlipidemia, unspecified; G47.30 Sleep apnea, unspecified; E11.9 Type 2 diabetes mellitus without complications; R62.50 Unspecified lack of expected normal physiological development in childhood; E11.649 Type 2 diabetes mellitus with hypoglycemia without coma; Z79.4 Long term (current) use of insulin; Z79.01 Long term (current) use of anticoagulants; Z79.82 Long term (current) use of aspirin; Z79.84 Long term (current) use of oral hypoglycemic drugs; J45.909 Unspecified asthma, uncomplicated; E78.00 Pure hypercholesterolemia, unspecified; R35.1 Nocturia; R35.0 Frequency of micturition; Z87.442 Personal history of urinary calculi; I48.2 Chronic atrial fibrillation
CPT/HCPCS: 36415; 80053; 83036; 83690; 83880; 84478; 84484; 85025; 85610; 85651; 86140; 93005; 93306; 93880; 99283; 99284

== ENCOUNTER 2017-08-27 10:17 | Outpatient (CLI) | payer OTHER ==
[2017-08-27 10:55] LABS: CREATININE 1.3 mg/dL (0.6-1.2)
[2017-08-27] MEDS ORDERED: IOPAMIDOL-300 50 ML VIAL ONE (11:02)
[2017-08-27] MEDS ORDERED: IOPAMIDOL-300 100 ML VIAL ONE (11:02)
[2017-08-27] MEDS ORDERED: IOPAMIDOL-300 100 ML VIAL IVP ONE (16:00)
--- NOTE | 2017-08-27 17:49 | CT Report ---
CT ABDOMEN AND PELVIS WITH CONTRAST: 08/27/2017 CLINICAL INDICATION: Followup appendiceal phlegmon. COMPARISON: 06/15/2017 TECHNIQUE: Axial CT images of the abdomen and pelvis were obtained with 75 mL Isovue 300 intravenously as well as oral contrast. In accordance with CT protocol optimization, one or more of the following dose reduction techniques were utilized for this exam: Automated exposure control, adjustment of mA and/or KV based on patient size, or use of iterative reconstructive technique. Limited evaluation of the lung bases is unremarkable. ABDOMEN: The liver, spleen, pancreas and adrenal glands are unremarkable. The left kidney demonstrates stable nonobstructing calculi in the lower pole. The right kidney is unremarkable. The patient is status post cholecystectomy. No bowel dilatation, free gas, or free fluid is present. No abdominal adenopathy is present. PELVIS: Previously seen appendiceal phlegmon has decreased in size, and surrounding inflammation has resolved. The residual appendix plus fluid now measures 4.0 x 1.0 cm (axial image 52). Sigmoid diverticulosis is again seen. No CT evidence of diverticulitis is present. No pelvic adenopathy or free fluid is present. Osseous structures demonstrate degenerative changes. IMPRESSION: SIGNIFICANT INTERVAL IMPROVEMENT IN APPENDICEAL DILATATION AND SURROUNDING INFLAMMATORY CHANGES AND PHLEGMON. RESIDUAL APPENDIX PLUS FLUID NOW MEASURES 4.0 X 1.0 CM. TD: 08/27/2017 17:48
[2017-08-28] MEDS ORDERED: IOPAMIDOL-300 100 ML VIAL IVP ONE (07:58)
== END 2017-08-27 10:18 | disposition home or self-care (01) ==
LOC: LAB 10:17 → DI 10:18
PROVIDERS: ATTEND Surgery
DX: K38.8 Other specified diseases of appendix (principal)
CPT/HCPCS: 36415; 74177; 82565; Q9967

== ENCOUNTER 2018-04-30 17:08 | Outpatient (CLI) | payer OTHER | END 2018-04-30 17:09 | disposition critical access hospital (66) | LOC: EMS 17:08 | PROVIDERS: ATTEND Surgery | DX: R55 Syncope and collapse (principal) | CPT/HCPCS: A0425; A0427 ==

== ENCOUNTER 2018-04-30 17:28 | Emergency (ER) | payer MEDICARE, OTHER ==
--- NOTE | 2018-04-30 17:50 | ED Physician Documentation ---
PD HPI SYNCOPE - Stated complaint Stated Complaint: WEAK - Chief complaint Chief Complaint: Neuro - History obtained from History obtained from: Patient - History of Present Illness Witnessed: Witnessed (68-year-old gentleman with history of diabetes, type II on insulin and atrial fibrillation as well as conservatively managed biliary colic versus cholecystitis in the past was at the [facility] when he started to feel like his blood sugar was low. He was going towards the bathroom and syncopized for an unknown period of time. Presents by ambulance now with epigastric and back pain. Declines pain medication and initial evaluation.) Review of Systems Ten Systems: 10 systems reviewed and negative Constitutional: denies: Fever, Chills Throat: denies: Dental pain / toothache, Oral lesions / sores, Sore throat Cardiac: reports: Chest pain / pressure. denies: Palpitations Respiratory: denies: Dyspnea, Cough GI: reports: Abdominal Pain. denies: Vomiting, Diarrhea PD PAST MEDICAL HISTORY - Past Medical History Cardiovascular: Congestive heart failure, Hypertension, High cholesterol, Atrial fibrillation, Murmur, Arrhythmia Respiratory: Asthma, Shortness of breath, Sleep apnea, CPAP use Endocrine/Autoimmune: Type 2 diabetes GI: Ulcers, Hemorrhoids, Cholelithiasis : Nocturia, Frequency, Kidney stones HEENT: None, Chronic vision loss Psych: None Musculoskeletal: None Derm: None - Past Surgical History Past Surgical History: Yes General: Cholecystectomy, Colonoscopy (Performed over 10 years ago per patient.), EGD, Other Ortho: Carpal Tunnel surgery HEENT: Tonsil/Adenoidectomy - Present Medications Home Medications: Ambulatory Orders Medication Instructions Recorded Confirmed Aspirin [Aspirin EC] 81 mg PO DAILY 04/02/16 06/20/17 Gemfibrozil [Lopid] 600 mg PO BIDAC 04/02/16 06/20/17 Lisinopril 40 mg PO DAILY 04/02/16 06/20/17 Metformin HCl [Glucophage] 1,275 mg PO BID 04/02/16 06/20/17 Aurora-3/Dha/Epa/Fish Oil [Fish Oil 1,000 mg PO BID 04/02/16 06/20/17 1,000 mg Softgel] Pravastatin Sodium [Pravachol] 40 mg PO DAILY 04/02/16 06/20/17 Spironolactone [Aldactone] 50 mg PO DAILY 04/02/16 06/20/17 Terazosin HCl 20 mg PO DAILY 04/02/16 06/20/17 amLODIPine [Norvasc] 10 mg PO DAILY 04/02/16 06/20/17 Multivitamin [Theragran] 1 tab PO DAILY tablet 04/03/16 06/20/17 Furosemide 20 mg PO DAILY 06/05/17 06/20/17 Levofloxacin [Levaquin] 500 mg PO DAILY #7 tablet 06/10/17 06/20/17 Metronidazole [Flagyl] 500 mg PO TID #21 tablet 06/10/17 06/20/17 Apixaban [Eliquis] 5 mg PO BID #60 tablet 06/21/17 Apixaban [Eliquis] 5 mg PO BID #60 tablet 06/21/17 Insulin Glargine [Lantus Solostar] 30 unit SUBQ BID #1 pen 06/21/17 Ciprofloxacin HCl [Cipro] 500 mg PO BID #20 tablet 04/30/18 Metronidazole [Flagyl] 500 mg PO BID #20 tablet 04/30/18 - Allergies Allergies/Adverse Reactions: Allergies Allergy/AdvReac Type Severity Reaction Status Date / Time No Known Drug Allergies Allergy Verified 06/04/17 16:36 - Social History Does the pt smoke?: No Smoking Status: Never smoker Does the pt drink ETOH?: No Does the pt have substance abuse?: No - Family History Family history: reports: Non contributory - Immunizations Immunizations are current?: Yes - POLST Patient has POLST: No POLST Status: Full Code PD ED PE NORMAL - Vitals Vital signs reviewed: Yes - General General: Alert and oriented X 3, No acute distress - HEENT HEENT: PERRL, EOMI - Neck Neck: Supple, no meningeal sign, No bony TTP - Cardiac Cardiac: RRR, No murmur - Respiratory Respiratory: No respiratory distress, Clear bilaterally - Abdomen Abdomen: Soft, Non distended, Other (TTP RUQ) - Back Back: No CVA TTP, No spinal TTP - Derm Derm: Normal color, Warm and dry - Extremities Extremities: No edema, No calf tenderness / cord - Neuro Neuro: Alert and oriented X 3, Normal speech Results - Vitals Vitals: Vital Signs - 24 hr 04/30/18 17:31 Temperature 36.4 C L Heart Rate 77 Respiratory 12 Rate Blood Pressure 106/75 O2 Saturation 95 Oxygen O2 Source Room air - EKG (time done) 1734 Rate: Rate (enter#) (65) Rhythm: Atrial fibrillation [place]: Normal Intervals: Normal CO QRS: Normal Ischemia: No: ST elevation c/w ischemia Computer interpretation: Agree with computer - Labs Labs: Laboratory Tests 04/30/18 04/30/18 04/30/18 18:04 18:04 18:04 WBC 6.8 RBC 4.38 L Hgb 13.4 L Hct 39.8 L MCV 90.7 MCH 30.5 MCHC 33.7 RDW 13.1 Plt Count 173 MPV 9.3 Neut # (Auto) 3.5 Lymph # (Auto) 2.5 [place] # (Auto) 0.5 Eos # (Auto) 0.2 Baso # (Auto) 0.0 Absolute Nucleated RBC 0.01 Nucleated RBC % 0.1 Sodium 136 Potassium 3.9 Chloride 98 L Carbon Dioxide 22 Anion Gap 16.0 H BUN 38 H Creatinine 2.0 H Estimated GFR (MDRD) 33 L Glucose 248 H Calcium 10.0 Total Bilirubin 0.6 AST 20 ALT 20 Alkaline Phosphatase 55 Troponin I < 0.04 Total Protein 8.2 Albumin 4.3 Globulin 3.9 Albumin/Globulin Ratio 1.1 Lipase 40 - Rads (name of study) CTA Chest/Abd Radiology: EMP read contemporaneously (Distal colonic diverticulosis with mild diverticulitis, no evidence of perforation, small pulmonary nodules not requiring follow-up. Trace bilateral pleural effusions. Stable tiny nonobstructive left infrarenal calculi. Stable irregular appearance of the appendiceal tip from prior inflammatory process. No vascular issue.) PD MEDICAL DECISION MAKING - ED course ED course: 68-year-old gentleman presents after syncopal episode today. He also has abdominal and back pain. Initial concern was for a vascular insult such as AAA or dissection and therefore CT imaging was done with contrast. This was notable for diverticulitis and other chronic findings. He declined pain medication while here. His lab work is notable for a normal white count and acute on chronic renal insufficiency. He was administered 2 L of IV fluids here as well as Cipro and Flagyl orally and he requested discharge. Discussed with him that he needs to have repeat labs within the next few days with his primary care physician to recheck his renal function. Departure - Departure Disposition: Home, Self Care Clinical Impression: Diverticulitis Atrial fibrillation Qualifiers: Atrial fibrillation type: chronic Qualified Code(s): I48.2 - Chronic atrial fibrillation Acute renal failure Qualifiers: Acute renal failure type: unspecified Qualified Code(s): N17.9 - Acute kidney failure, unspecified Diabetes Qualifiers: Diabetes mellitus type: type 2 Diabetes mellitus alf insulin use: with lobsterman use Diabetes mellitus complication status: with hyperglycemia Qualified Code(s): E11.65 - Type 2 diabetes mellitus with hyperglycemia; Z79.4 - intermediate teacher (current) use of insulin Condition: Stable Record reviewed to determine appropriate education?: Yes Instructions: ED Diverticulitis Prescriptions: Ciprofloxacin HCl [Cipro] 500 mg PO BID #20 tablet Metronidazole [Flagyl] 500 mg PO BID #20 tablet Comments: Drink plenty of fluids. Do not drink alcohol while on the antibiotics. Follow- up with your physician on Wednesday, I recommend having repeat labs Wednesday or Wednesday to recheck your renal function. Return for new or worsening symptoms.
[2018-04-30] MEDS ORDERED: IOVERSOL 320 100 ML VIAL IVP ONE ×2 (17:57→19:28)
[2018-04-30 18:27] LABS: BASOPHILS % (AUTO) 0.4 %; EOSINOPHILS # (AUTO) 0.2 10^3/uL (0.0-0.7); HGB - HEMOGLOBIN 13.4 g/dL (14.0-18.0); LYMPHOCYTES # (AUTO) 2.5 10^3/uL (1.5-3.5); LYMPHOCYTES % (AUTO) 36.5 %; MEAN CORPUSCULAR HEMOGLOBIN 30.5 pg (27.0-31.0); MEAN CORPUSCULAR HGB CONC 33.7 g/dL (32.0-36.0); MEAN CORPUSCULAR VOLUME 90.7 fL (80.0-94.0); MEAN PLATELET VOLUME 9.3 fL (7.4-11.4); MONOCYTES # (AUTO) 0.5 10^3/uL (0.0-1.0); MONOCYTES % (AUTO) 8.1 %; NEUTROPHILS # (AUTO) 3.5 10^3/uL (1.5-6.6); PLT - PLATELET COUNT 173 10^3/uL (130-450); RED BLOOD COUNT 4.38 10^6/uL (4.70-6.10); RED CELL DISTRIBUTION WIDTH 13.1 % (12.0-15.0); WHITE BLOOD COUNT 6.8 x10^3/uL (4.8-10.8)
[2018-04-30 18:44] LABS: ALBUMIN 4.3 g/dL (3.2-5.5); ALBUMIN/GLOBULIN RATIO 1.1 (1.0-2.2); BILIRUBIN,TOTAL 0.6 mg/dL (0.2-1.0); TOTAL PROTEIN 8.2 g/dL (6.7-8.2)
[2018-04-30] MEDS ORDERED: SODIUM CHLORIDE 0.9% 1,000 ML IV ONE ×2 (19:02→20:22)
--- NOTE | 2018-04-30 20:07 | CT Report ---
Reason: CHest/back/abd pain, syncope Procedure Date: 04/30/2018 Accession Number: [id number] / [id number] Procedure: CT - Abdomen/Pelvis Angio CPT Code: FULL RESULT: IMPRESSION: 1. Distal colonic diverticulosis. Mild acute distal/sigmoid colon diverticulitis, without evidence for perforation. 2. Tiny 4 mm right lower lobe nodule and 3 mm perifissural node along the oblique fissure. No routine follow-up imaging is needed per 2017 [employer] guidelines. 3. Trace bilateral pleural effusions. 4. Stable tiny nonobstructive left intrarenal calculi. 5. Stable subtle irregular appearance of the appendiceal tip, likely sequela of prior inflammatory process. 6. No aortic aneurysm or dissection. RADIA
--- NOTE | 2018-04-30 20:07 | CT Report ---
Reason: CHest/back/abd pain, syncope Procedure Date: 04/30/2018 Accession Number: [id number] / [id number] Procedure: CT - Chest Angio (AORTA) CPT Code: FULL RESULT: EXAM: CT ANGIOGRAM CHEST, ABDOMEN, AND PELVIS EXAM DATE: 04/30/2018 07:21 PM. CLINICAL HISTORY: Chest, back, and abdominal pain. Syncope. COMPARISONS: ABDOMEN/PELVIS W/ 08/27/2017 12:38 PM ABDOMEN/PELVIS ANGIO 04/30/2018 7:04 PM ABDOMEN/PELVIS W06/15/2017 4:21 PM. TECHNIQUE: Noncontrast imaging through the chest followed by angiographic imaging through the chest, abdomen, and pelvis. IV Contrast: 100 mL Optiray 320. Reconstructions: Coronal, sagittal, and 3D MIP reconstructions of the aorta. In accordance with CT protocol optimization, one or more of the following dose reduction techniques were utilized for this exam: automated exposure control, adjustment of mA and/or KV based on patient size, or use of iterative reconstructive technique. FINDINGS: Vascular structures: Mild atherosclerotic calcifications within the aortic arch. Variant aortic arch anatomy, with common origin of the innominate and left common carotid arteries. No aortic or iliac artery aneurysm or dissection.. No hemodynamically significant stenosis of the thoracic aortic branches or mesenteric or solid organ arteries. The pulmonary arteries are unremarkable, with no embolus seen through the subsegmental arteries. Lungs/pleura: 4 mm nodule in the superior segment of the right lower lobe (4/24). 3 mm nodular opacity along the superior oblique fissure, possibly fissural node (4/23). Trace bilateral pleural effusions. Mediastinum: Heart size is at the upper limits of normal. Atherosclerotic calcifications within the coronary arteries, extensive in the left anterior descending coronary artery. No pericardial effusion. No adenopathy. Abdominal solid organs: Unchanged mild nodular thickening of the left adrenal gland without discrete nodules, possibly representing hyperplasia. Stable clustered nonobstructive intrarenal calculi in the left lower pole, the largest 6-7 mm. Otherwise unremarkable arterial phase appearance of the liver, pancreas, spleen, adrenal glands, and kidneys. Gallbladder and bile ducts: Post cholecystectomy. No biliary ductal dilatation. Peritoneal cavity/GI tract: Descending and sigmoid colon diverticulosis. Focal inflammatory fat stranding adjacent to the mid/distal sigmoid colon, centered around an inflamed diverticulum, compatible with acute diverticulitis. Normal caliber appendix with mild fat stranding adjacent to the appendiceal tip, similar to 08/27/2017, likely sequela of prior inflammatory process. No free fluid or pneumoperitoneum. No rim-enhancing focal fluid collection to suggest abscess. Few stable prominent and borderline enlarged periportal lymph nodes, the largest an 11 mm luke hepatis node (4/60), nonspecific. Bones: Thoracic spine DISH. Mild degenerative disk disease in the lumbar spine, most pronounced at L3-L4. Moderate facet arthropathy at L3-L4 and L4-L5. No acute bony abnormality. Other: Mild bilateral gynecomastia. Unchanged small fat-containing bilateral inguinal hernias. IMPRESSION: 1. Distal colonic diverticulosis. Mild acute distal/sigmoid colon diverticulitis, without evidence for perforation. 2. Tiny 4 mm right lower lobe nodule and 3 mm perifissural node along the oblique fissure. No routine follow-up imaging is needed per 2017 Blaze Society guidelines. 3. Trace bilateral pleural effusions. 4. Stable tiny nonobstructive left intrarenal calculi. 5. Stable subtle irregular appearance of the appendiceal tip, likely sequela of prior inflammatory process. 6. No aortic aneurysm or dissection. RADIA
[2018-04-30] MEDS ORDERED: metroNIDAZOLE 250 MG TABLET PO STA (20:22)
[2018-04-30] MEDS ORDERED: CIPROFLOXACIN 250 MG TABLET PO STA (20:22)
[2018-04-30 20:49] VITALS: BP 142/90
== END 2018-04-30 22:20 | disposition home or self-care (01) ==
LOC: EDUNIT# → ED 17:28
DX: K57.90 Diverticulosis of intestine, part unspecified, without perforation or abscess without bleeding (principal); I48.2 Chronic atrial fibrillation; I13.0 Hypertensive heart and chronic kidney disease with heart failure and stage 1 through stage 4 chronic kidney disease, or unspecified chronic kidney disease; E11.22 Type 2 diabetes mellitus with diabetic chronic kidney disease; E11.65 Type 2 diabetes mellitus with hyperglycemia; N18.9 Chronic kidney disease, unspecified; I50.9 Heart failure, unspecified; N17.9 Acute kidney failure, unspecified; Z79.4 Long term (current) use of insulin; Z79.82 Long term (current) use of aspirin
CPT/HCPCS: 36415; 71275; 74174; 80053; 83690; 84484; 85025; 93005; 96360; 96361; 99283; A9270; Q9967

== ENCOUNTER 2023-02-14 14:58 | Outpatient (CLI) | payer OTHER | END 2023-02-14 14:59 | disposition EMS.NT | LOC: EMS 14:58 | DX: E10.649 Type 1 diabetes mellitus with hypoglycemia without coma (principal) ==

== ENCOUNTER 2023-12-23 17:40 | Outpatient (CLI) | payer OTHER | END 2023-12-23 17:41 | disposition EMS.NT | LOC: EMS 17:40 | DX: Z03.89 Encounter for observation for other suspected diseases and conditions ruled out (principal) ==